=== PATIENT | female | born 1970 | race Caucasian/White ===

== ENCOUNTER 2025-03-15 04:19 | Emergency (ER) | payer MEDICAID, SELFPAY ==
[2025-03-15] VITALS (9 sets, daily range): BP systolic 96–163; BP diastolic 49–84; PULSE 57–79; RESP 14–20; TEMP 36.7–36.9; O2SAT 96–100; BMI 26.4
--- NOTE | 2025-03-15 04:17 | ECG_ITS ---
APPROVED REPORT Exam: Resting ECG HR:79 bpm ECG Measurements Heart Rate 79 AXES MT 148 P 69 QRSd 88 QRS 72 QT 384 T 18 QTc 419 Conclusion SINUS RHYTHM LOW QRS VOLTAGE IN PRECORDIAL LEADS [QRS DEFLECTION < 1.0 mV IN CHEST LEADS] ST DEVIATION AND MODERATE T-WAVE ABNORMALITY, CONSIDER ANTERIOR ISCHEMIA [-0.1+ mV T-WAVE IN V3/V4] ABNORMAL ECG UNCONFIRMED REPORT Electronically signed by : KELLEN NAIR, 03/17/2025 00:33:55
--- NOTE | 2025-03-15 04:22 | ED_ITS ---
Discharge Plan Disposition Patient Disposition: Home, Self-Care Referrals Follow up/Referrals: Carlos Hardin MD [Staff Physician, General Surgery] - See instructions Raffi Orbien MD [Staff Physician, Cardiology] - See instructions ProviderDawit MD [Primary Care Provider, Medical] - See instructions Lisa Chaudhary MD [Physician, Pulmonology] - See instructions Activity Restrictions/Add. Instructions Additional Instructions/Restrictions: As discussed there is diagnostic uncertainty but no evidence of any emergent medical condition identified today. The only abnormality that we found were gallstones on your bedside ultrasound. It is likely that your symptoms today were secondary to biliary colic from your gallstones and you may follow-up with our general surgeon Dr. Hardin. Also as you had some chest discomfort cannot rule out that there is some cardiac involvement but there was no evidence of a heart attack or any cardiopulmonary emergency but you may follow-up with our officer captain Dr. Obrien as well. Lastly given the fact that you are a chronic smoker and you have had some chronic respiratory issues per your request have given you a referral to our log haul chain feeder Dr. Chaudhary. Clinical Impressions Clinical Impression: Back pain, Chest pain, Abdominal pain, Gall bladder stones Instructions Patient Instructions: DI for Acute Abdominal Pain Print Language Print Language: Syriac Discharge ED Provider: Román Leung General Adult HPI <Román Leung MD - Last Filed: 03/15/25 07:12> General Chief complaint: Abdominal Pain Stated complaint: chest pain Time Seen by Provider: 03/15/25 04:22 History of Present Illness HPI narrative: 55-year-old female with reported history of chronic Lyme disease presents for back pain chest pain shortness of breath. She reports symptoms started tonight and have been worsening. She reports a sharp stabbing pain between her shoulder blades. She reports significant shortness of breath. She is chronically short of breath with much worse now than normal. She reports that she has a history of back issues due to breaking her back as a child. She is very anxious and hyperventilating. Related Data Allergies Allergy/AdvReac Type Severity Reaction Status Date / Time prednisone Allergy Hives Verified 03/15/25 04:44 PFSH <Román Leung MD - Last Filed: 03/15/25 07:12> [facility] Disclaimer: The information contained in this section may have been updated after the patient was seen, as this information can be updated by other users. Social History (Updated 03/15/25 @ 07:12 by Román Leung MD) Smoking Status: Current every day smoker alcohol intake: never current occupational status: other Travel in the last 8 weeks?: None <Román Leung MD - Last Filed: 03/15/25 07:12> ROS Obtained: Yes All systems reviewed & no additional complaints except as documented Physical Exam <Román Leung MD - Last Filed: 03/15/25 07:12> General General appearance: anxious and in distress Head Head exam: atraumatic and normocephalic Eye Eye exam: Present normal appearance, PERRL and EOMI ENT ENT exam: Present normal oropharynx and normal external ear exam Neck Neck exam: Present normal inspection and full ROM Chest Chest inspection: Present normal inspection and symmetric chest wall rise; Absent tenderness Respiratory Respiratory exam: Present normal lung sounds bilaterally and other (Hyperventilating) Cardiovascular Cardiovascular exam: Present regular rate and normal rhythm Abdominal Exam Abdominal exam: Present soft; Absent distention, tenderness or guarding Extremities Exam Extremities exam: Present normal inspection; Absent edema or joint swelling Back Exam Back exam: Present normal inspection and tenderness Neurological Exam Neurological exam: Present alert and oriented X3; Absent motor sensory deficit Psychiatric Psychiatric exam: Present anxious Skin Skin exam: Present warm, dry and normal color Lymphatic Lymphatic Findings: no adenopathy Medical Decision Making <Román Leung MD - Last Filed: 03/15/25 07:12> Medical Records Medical records reviewed: Yes I reviewed the patient's medical records. Screening: Per USPSTF and CDC recommendations, given the prevalence of disease in our region, it is our hospital?s policy to screen for HIV and viral Hepatitis for all patients aged 18 and over and those with ongoing risk factors. Nilo Inquiry Pt receiving controlled substance: No Nilo was queried for this patient: No Vital Signs: 03/15/25 04:39 03/15/25 04:52 03/15/25 04:52 Temperature 98.0 F Temperature Source Oral Pulse Rate 79 63 Pulse Rate [Left Radial] 77 Respiratory Rate 19 20 Blood Pressure 143/81 H Blood Pressure [Right Arm] 138/70 Blood Pressure Mean [Right Arm] 92 Blood Pressure Source [Right Arm] Automatic Cuff Blood Pressure Position [Right Arm] Sitting 02 Sat by Pulse Oximetry 100 100 Oxygen Delivery Method Room Air 03/15/25 05:30 03/15/25 06:01 03/15/25 06:35 Temperature Temperature Source Pulse Rate 63 61 Pulse Rate [Left Radial] Respiratory Rate 17 17 14 Blood Pressure 163/84 H 98/49 L 127/73 Blood Pressure [Right Arm] Blood Pressure Mean [Right Arm] Blood Pressure Source [Right Arm] Blood Pressure Position [Right Arm] 02 Sat by Pulse Oximetry 99 98 Oxygen Delivery Method 03/15/25 07:30 03/15/25 08:00 Temperature Temperature Source Pulse Rate 57 L 59 L Pulse Rate [Left Radial] Respiratory Rate 16 16 Blood Pressure 98/60 L 109/69 L Blood Pressure [Right Arm] Blood Pressure Mean [Right Arm] Blood Pressure Source [Right Arm] Blood Pressure Position [Right Arm] 02 Sat by Pulse Oximetry 96 97 Oxygen Delivery Method Lab Data Lab results reviewed: Yes I reviewed the patient's lab results. Lab Results 03/15/25 04:20: WBC 8.7, RBC 4.53, Hgb 13.7, Hct 39.3, MCV 86.8, MCH 30.2, MCHC 34.9, RDW 12.4, Plt Count 227, MPV 11.4 H, Neut % (Auto) 45.5, Lymph % (Auto) 44.3, Sutton % (Auto) 5.4, Eos % (Auto) 3.9, Baso % (Auto) 0.7, Neut # (Auto) 4.0, Lymph # (Auto) 3.9, Sutton # (Auto) 0.5, Eos # (Auto) 0.3, Baso # (Auto) 0.1, D- Dimer 0.62 H, Sodium 138, Potassium 4.0, Chloride 113 H, Carbon Dioxide 16 L, Anion Gap 13.0, BUN 14, Creatinine 1.00, Estimated GFR 58 L, Est GFR ( Amer) 70, Glucose 100, Calcium 9.3, Magnesium 2.2, Total Bilirubin 0.3, AST 28, ALT 25, Alkaline Phosphatase 75, Troponin I < 0.01, Total Protein 6.7, Albumin 4.2, Globulin 2.5, Albumin/Globulin Ratio 1.7, Lipase 224 03/15/25 06:35: Urine Color Yellow, Urine Appearance Clear, Urine pH 5.5, Ur Specific [place] 1.010, Urine Protein Negative, Urine Glucose (UA) Negative, Urine Ketones Negative, Urine Blood Negative, Urine Nitrate Negative, Urine Bilirubin Negative, Urine Urobilinogen 0.2, Ur Leukocyte Esterase Negative, Urine RBC Occasional, Urine WBC 3-5, Ur Squamous Epith Cells 3-5, Urine Bacteria Trace 03/15/25 07:15: Troponin I < 0.01 03/15/25 04:20 03/15/25 04:20 Orders (Tests/Meds): ED MEDICATIONS Discontinued Medications Generic Name Dose Route Start Last Admin Trade Name Rene PRN Reason Stop Dose Admin Aspirin 324 mg 03/15/25 04:22 03/15/25 04:27 Aspirin 81mg Chewable Tablet PO 03/15/25 04:23 324 mg ONCE ONE Administration Belladonna Alkaloids 60 ml 03/15/25 04:22 03/15/25 04:28 Belladonna Alkaloids 60 Ml Ml PO 03/15/25 04:23 60 ml ONCE ONE Administration Iopamidol 80 ml 03/15/25 05:12 03/15/25 05:13 Iopamidol-370 (76%);100ml Bottle IV 03/15/25 05:13 80 ml ONCE ONE Administration Morphine Sulfate 4 mg 03/15/25 04:48 03/15/25 04:53 Morphine 4mg/Ml Syringe IV 03/15/25 04:49 4 mg ONCE ONE Administration Promethazine HCl 25 mg 03/15/25 04:48 03/15/25 04:54 Promethazine Hcl 25mg/Ml 1ml Vial IV 03/15/25 04:49 25 mg ONCE ONE Administration Sodium Chloride 25 ml 03/15/25 04:48 03/15/25 04:54 Sodium Chloride 0.9% 25ml Bag IV 03/15/25 04:49 25 ml ONCE ONE Administration Sodium Chloride 50 ml 03/15/25 05:12 03/15/25 05:13 0.9 % Sodium Chloride 50 Ml Vial IV 03/15/25 05:13 50 ml ONCE ONE Administration Sodium Chloride 10 ml 03/15/25 05:12 03/15/25 05:13 Sodium Chloride 0.9% 10ml Syr (Rad Only) IV 03/15/25 05:13 10 ml ONCE ONE Administration ORDERS Category Date Time Status CTA Chest [CT angio chest - dissection] Stat Cat Scan 03/15/25 04:49 Completed CXR --portable [XR chest portable] Stat Exams 03/15/25 04:22 Completed POCUS Point of Care (ER Only) Stat Exams 03/15/25 05:43 Completed CBC w/Auto Diff [Complete Blood Count Auto Diff] Stat Lab 03/15/25 04:20 Completed CMP [Comprehensive Metabolic Panel] Stat Lab 03/15/25 04:20 Completed D-Dimer Stat Lab 03/15/25 04:20 Completed Lipase Stat Lab 03/15/25 04:20 Completed Magnesium Stat Lab 03/15/25 04:20 Completed Troponin I Q3H Lab 03/15/25 04:20 Completed Troponin I Q3H Lab 03/15/25 07:15 Completed UA [Urinalysis and Microscopic] Stat Lab 03/15/25 06:35 Completed ECG Data Tracing #1: I reviewed this ECG and interpreted as documented below: Sinus rhythm, rate of 79, T wave inversion in lead V3, base artifact somewhat limits interpretation. ECG initial impression date: 03/15/25 ECG initial impression time: 04:17 HEART Score History (anamnesis): Slightly suspicious ECG: Non-specific disturbance Age: 45-65 years Risk factors: No known risk factors Troponin: </= normal limit HEART Score: 2 Medical Decision Narrative: 55-year-old female with chronic Lyme presents for severe back pain radiating to the chest and shortness of breath. History was obtained via interactive discussion with patient. On arrival, patient is [afebrile, hemodynamically stable, satting appropriately, alert, oriented x4, GCS 15], moving all extremities spontaneously. Full physical exam performed and significant for extremely anxious woman, writhing around in bed, clear lungs bilaterally, no significant abdominal tenderness. Differential includes but is not limited to ACS, PE, acute aortic syndrome, esophageal pathology, panic attack. Patient was given aspirin, GI cocktail, morphine, Phenergan for symptomatic management and correction of underlying abnormalities. Workup initiated including CBC CMP troponin D-dimer chest x-ray EKG. On re-evaluation, patient is more calm, still reporting pain, now primarily in her right upper quadrant and her back. As such, I performed a bedside ultrasound which showed some gallstones but no pericholecystic fluid or gallbladder wall thickening. Laboratory workup independently interpreted by me and significant for positive D-dimer, will follow-up with CTA. Negative initial troponin, urinalysis not concerning for infection or stone.. Imaging independently interpreted by me and significant for clear lungs bilaterally without evidence of PE, no evidence of aortic dissection.. See radiology read for full review of final results. On further reassessment patient reports marked symptomatic improvement. At this time care handed off to oncoming physician pending second troponin. <Michael Okeefe MD - Last Filed: 03/15/25 08:38> Vital Signs: 03/15/25 04:39 03/15/25 04:52 03/15/25 04:52 Temperature 98.0 F Temperature Source Oral Pulse Rate 79 63 Pulse Rate [Left Radial] 77 Respiratory Rate 19 20 Blood Pressure 143/81 H Blood Pressure [Right Arm] 138/70 Blood Pressure Mean [Right Arm] 92 Blood Pressure Source [Right Arm] Automatic Cuff Blood Pressure Position [Right Arm] Sitting 02 Sat by Pulse Oximetry 100 100 Oxygen Delivery Method Room Air 03/15/25 05:30 03/15/25 06:01 03/15/25 06:35 Temperature Temperature Source Pulse Rate 63 61 Pulse Rate [Left Radial] Respiratory Rate 17 17 14 Blood Pressure 163/84 H 98/49 L 127/73 Blood Pressure [Right Arm] Blood Pressure Mean [Right Arm] Blood Pressure Source [Right Arm] Blood Pressure Position [Right Arm] 02 Sat by Pulse Oximetry 99 98 Oxygen Delivery Method 03/15/25 07:30 03/15/25 08:00 Temperature Temperature Source Pulse Rate 57 L 59 L Pulse Rate [Left Radial] Respiratory Rate 16 16 Blood Pressure 98/60 L 109/69 L Blood Pressure [Right Arm] Blood Pressure Mean [Right Arm] Blood Pressure Source [Right Arm] Blood Pressure Position [Right Arm] 02 Sat by Pulse Oximetry 96 97 Oxygen Delivery Method Lab Data Lab Results 03/15/25 04:20: WBC 8.7, RBC 4.53, Hgb 13.7, Hct 39.3, MCV 86.8, MCH 30.2, MCHC 34.9, RDW 12.4, Plt Count 227, MPV 11.4 H, Neut % (Auto) 45.5, Lymph % (Auto) 44.3, [place] % (Auto) 5.4, Eos % (Auto) 3.9, Baso % (Auto) 0.7, Neut # (Auto) 4.0, Lymph # (Auto) 3.9, [place] # (Auto) 0.5, Eos # (Auto) 0.3, Baso # (Auto) 0.1, D- Dimer 0.62 H, Sodium 138, Potassium 4.0, Chloride 113 H, Carbon Dioxide 16 L, Anion Gap 13.0, BUN 14, Creatinine 1.00, Estimated GFR 58 L, Est GFR ( Amer) 70, Glucose 100, Calcium 9.3, Magnesium 2.2, Total Bilirubin 0.3, AST 28, ALT 25, Alkaline Phosphatase 75, Troponin I < 0.01, Total Protein 6.7, Albumin 4.2, Globulin 2.5, Albumin/Globulin Ratio 1.7, Lipase 224 03/15/25 06:35: Urine Color Yellow, Urine Appearance Clear, Urine pH 5.5, Ur Specific [place] 1.010, Urine Protein Negative, Urine Glucose (UA) Negative, Urine Ketones Negative, Urine Blood Negative, Urine Nitrate Negative, Urine Bilirubin Negative, Urine Urobilinogen 0.2, Ur Leukocyte Esterase Negative, Urine RBC Occasional, Urine WBC 3-5, Ur Squamous Epith Cells 3-5, Urine Bacteria Trace 03/15/25 07:15: Troponin I < 0.01 Orders (Tests/Meds): ED MEDICATIONS Discontinued Medications Generic Name Dose Route Start Last Admin Trade Name Freq PRN Reason Stop Dose Admin Aspirin 324 mg 03/15/25 04:22 03/15/25 04:27 Aspirin 81mg Chewable Tablet PO 03/15/25 04:23 324 mg ONCE ONE Administration Belladonna Alkaloids 60 ml 03/15/25 04:22 03/15/25 04:28 Belladonna Alkaloids 60 Ml Ml PO 03/15/25 04:23 60 ml ONCE ONE Administration Iopamidol 80 ml 03/15/25 05:12 03/15/25 05:13 Iopamidol-370 (76%);100ml Bottle IV 03/15/25 05:13 80 ml ONCE ONE Administration Morphine Sulfate 4 mg 03/15/25 04:48 03/15/25 04:53 Morphine 4mg/Ml Syringe IV 03/15/25 04:49 4 mg ONCE ONE Administration Promethazine HCl 25 mg 03/15/25 04:48 03/15/25 04:54 Promethazine Hcl 25mg/Ml 1ml Vial IV 03/15/25 04:49 25 mg ONCE ONE Administration Sodium Chloride 25 ml 03/15/25 04:48 03/15/25 04:54 Sodium Chloride 0.9% 25ml Bag IV 03/15/25 04:49 25 ml ONCE ONE Administration Sodium Chloride 50 ml 03/15/25 05:12 03/15/25 05:13 0.9 % Sodium Chloride 50 Ml Vial IV 03/15/25 05:13 50 ml ONCE ONE Administration Sodium Chloride 10 ml 03/15/25 05:12 03/15/25 05:13 Sodium Chloride 0.9% 10ml Syr (Rad Only) IV 03/15/25 05:13 10 ml ONCE ONE Administration ORDERS Category Date Time Status CTA Chest [CT angio chest - dissection] Stat Cat Scan 03/15/25 04:49 Completed CXR --portable [XR chest portable] Stat Exams 03/15/25 04:22 Completed POCUS Point of Care (ER Only) Stat Exams 03/15/25 05:43 Completed CBC w/Auto Diff [Complete Blood Count Auto Diff] Stat Lab 03/15/25 04:20 Completed CMP [Comprehensive Metabolic Panel] Stat Lab 03/15/25 04:20 Completed D-Dimer Stat Lab 03/15/25 04:20 Completed Lipase Stat Lab 03/15/25 04:20 Completed Magnesium Stat Lab 03/15/25 04:20 Completed Troponin I Q3H Lab 03/15/25 04:20 Completed Troponin I Q3H Lab 03/15/25 07:15 Completed UA [Urinalysis and Microscopic] Stat Lab 03/15/25 06:35 Completed HEART Score HEART Score: 2 Medical Decision Narrative: 55-year-old female with chronic Lyme presents for severe back pain radiating to the chest and shortness of breath. History was obtained via interactive discussion with patient. On arrival, patient is [afebrile, hemodynamically stable, satting appropriately, alert, oriented x4, GCS 15], moving all extremities spontaneously. Full physical exam performed and significant for extremely anxious woman, writhing around in bed, clear lungs bilaterally, no significant abdominal tenderness. Differential includes but is not limited to ACS, PE, acute aortic syndrome, esophageal pathology, panic attack. Patient was given aspirin, GI cocktail, morphine, Phenergan for symptomatic management and correction of underlying abnormalities. Workup initiated including CBC CMP troponin D-dimer chest x-ray EKG. On re-evaluation, patient is more calm, still reporting pain, now primarily in her right upper quadrant and her back. As such, I performed a bedside ultrasound which showed some gallstones but no pericholecystic fluid or gallbladder wall thickening. Laboratory workup independently interpreted by me and significant for positive D-dimer, will follow-up with CTA. Negative initial troponin, urinalysis not concerning for infection or stone.. Imaging independently interpreted by me and significant for clear lungs bilaterally without evidence of PE, no evidence of aortic dissection.. See radiology read for full review of final results. On further reassessment patient reports marked symptomatic improvement. At this time care handed off to oncoming physician pending second troponin. Reassessment this is Dr. Okeefe at 8:36 AM I took over care from Dr. Leung. I reviewed all the workup from Dr. Leung and the second troponin was undetectably low. CT scan was unremarkable troponins were unremarkable EKG was nonischemic his bedside ultrasound I reviewed the images there are evidence of stones and sludge and no evidence of acute cholecystitis. I reassessed the patient she is feeling much better she did states she had some right sided abdominal discomfort but primarily back pain that was radiating through to her back. No evidence of a dissection on CT scan. She is a chronic smoker no evidence of any lung parenchymal abnormalities. She did state that she has had some chronic hoarse voice as well as chronic congestion and has been trying to stop smoking I given her a referral to her log haul chain feeder per her request. Most likely her symptoms are secondary to biliary colic as the only abnormality we found today were some gallstones/sludge. I told her that this may return and we discussed some dietary modifications and I gave her referral to a general surgeon if this returns. Lastly as some of her symptoms were involving her chest and her back cannot rule out cardiac involvement there is no definitive evidence of acute coronary syndrome or myocardial injury etc. However I have given her also a referral to cardiology. There is some diagnostic uncertainty with what did cause her symptoms today but overall this is not consistent with a medical or surgical emergency and patient was discharged in stable condition with outpatient follow-up discussed. Procedures <Román Leung MD - Last Filed: 03/15/25 07:12> Risk/Benefits of Procedure(s) Were Explained: Yes Limited Ultrasound Indication:: Limited RUQ ultrasound Indication: Abdominal pain Identified structures: -Gallbladder -Gallbladder wall -Liver Findings: Sonographic Watkins sign: Absent Gallstones: Present Sludge: Present Pericholecystic fluid: Absent Maximal GB wall thickness (mm): [normal is </= 3mm] 1.9 mm Common bile duct width (mm): [normal is </= 6mm] Unable to visualize Gallbladder width (cm): [normal is < 4cm] Normal Gallbladder length (cm): [normal is < 10cm] Upper limit of normal Impression: Cholelithiasis without evidence of cholecystitis Images were saved to permanent archive The study was technically adequate CPT 20020-50 This study was performed by me, and I personally interpreted all images/videos. Critical Care <Román Leung MD - Last Filed: 03/15/25 07:12> Critical Care Time Critical Care Time: No <Michael Okeefe MD - Last Filed: 03/15/25 08:38> Critical Care Time Critical Care Time: Yes Attestation: On 03/15/25, the high probability of a clinically significant, sudden or life threatening deterioration of the following system(s) required my full and direct attention, intervention and personal management. The time I documented below is in addition to time spent performing reported procedures but includes the following listed in this critical care notation. Total Time Total Critical Care Time: 35
--- NOTE | 2025-03-15 04:22 | XR_ITS ---
PROCEDURE INFORMATION: Exam: XR Chest Exam date and time: 03/15/2025 4:43 AM Age: 55 years old Clinical indication: Pain; Chest pressure; Additional info: Cp TECHNIQUE: Imaging protocol: Radiologic exam of the chest. Views: 1 view. COMPARISON: No relevant prior studies available. FINDINGS: Lungs: Unremarkable. No consolidation. Pleural spaces: Unremarkable. No pleural effusion. No pneumothorax. Heart/Mediastinum: Unremarkable. No cardiomegaly. Bones/joints: Unremarkable. IMPRESSION: No acute findings.
[2025-03-15 04:27] LABS: Hematocrit 39.3 % (37.0-47.0); Hemoglobin 13.7 g/dL (12.2-16.2); Immature Granulocytes % 0.2 %; Mean Corpuscular HGB Conc 34.9 g/dL (31.8-35.4); Mean Corpuscular Hemoglobin 30.2 pg (27.0-31.2); Mean Corpuscular Volume 86.8 fl (81-99); Nucleated Red Blood Cells % 0 %; Platelet Count 227 K/mm3 (142-424); Red Blood Count 4.53 M/mm3 (4.20-5.40); Red Cell Distribution Width-SD 39.5 fL; White Blood Count 8.7 K/mm3 (4.8-10.8)
[2025-03-15] MEDS: ASPIRIN 81MG CHEWABLE TABLET 324 MG PO (04:27)
[2025-03-15] MEDS: BELLADONNA ALKALOIDS 60 ML ML PO (04:28)
[2025-03-15 04:37] LABS: Alanine Aminotransferase 25 U/L (12-78); Albumin Level 4.2 g/dl (3.5-5.0); Albumin/Globulin Ratio 1.7 (1.1-1.8); Alkaline Phosphatase 75 U/L (38-126); Anion Gap 13.0 mEq/L (5-15); Aspartate Amino Transferase 28 U/L (14-36); Bilirubin,Total 0.3 mg/dl (0.2-1.3); Blood Urea Nitrogen 14 mg/dl (7-17); Calcium 9.3 mg/dl (8.4-10.2); Carbon Dioxide 16 mmol/L (22.0-30.0); Chloride 113 mmol/L (98-107); Creatinine,Serum 1.00 mg/dl (0.52-1.04); Estimated Glomerular Filt Rate 58 ml/min (>60); GFR (African American) 70 ML/MIN (>60); Globulin 2.5 g/dL (1.3-3.2); Glucose 100 mg/dl (74-100); Magnesium 2.2 mg/dl (1.6-2.3); Potassium 4.0 mmoL/L (3.5-5.1); Sodium 138 mmol/L (136-145); Total Protein,Serum 6.7 g/dl (6.3-8.2)
[2025-03-15 04:41] LABS: D-Dimer 0.62 ug/mL (0.0-0.5)
--- NOTE | 2025-03-15 04:49 | CT_ITS ---
PROCEDURE INFORMATION: Exam: CTA Chest With Contrast Exam date and time: 03/15/2025 5:07 AM Age: 55 years old Clinical indication: Chest pressure and other: Back pain; Additional info: Severe back/chest pain, positive dimer TECHNIQUE: Imaging protocol: Computed tomographic angiography of the chest with contrast. Exam focused on the arteries. 3D rendering (Not supervised by radiologist): MIP and/or 3D reconstructed images were created by the technologist. Radiation optimization: All CT scans at this facility use at least one of these dose optimization techniques: automated exposure control; mA and/or kV adjustment per patient size (includes targeted exams where dose is matched to clinical indication); or iterative reconstruction. Contrast material: ISOVUE; Contrast volume: 80 ml; Contrast route: INTRAVENOUS (IV); COMPARISON: CR XR CHEST PORTABLE 03/15/2025 4:43 AM FINDINGS: Pulmonary arteries: Normal. No pulmonary emboli. Aorta: Unremarkable. No aortic aneurysm. No aortic dissection. Lungs: Unremarkable. No consolidation. No masses. Pleural spaces: Unremarkable. No pneumothorax. No pleural effusion. Heart: No coronary calcification is noted. . No cardiomegaly. No pericardial effusion. Lymph nodes: Unremarkable. No enlarged lymph nodes. Bones/joints: Unremarkable. No acute fracture. Soft tissues: Unremarkable. IMPRESSION: No evidence of pulmonary embolus or other acute process.
[2025-03-15 04:52] LABS: Troponin I < 0.01 ng/ml (0.00-0.034)
[2025-03-15] MEDS: MORPHINE 4MG/ML SYRINGE 4 MG IV (04:53)
[2025-03-15] MEDS: SODIUM CHLORIDE 0.9% 25ML BAG 25 ML IV (04:54)
[2025-03-15] MEDS: PROMETHAZINE HCL 25MG/ML 1ML VIAL 25 MG IV (04:54)
--- NOTE | 2025-03-15 04:54 | PC.NURSE ---
pt thrashing around in bed, rapid speech, intermittently laughing, and jittery. States she can not sit still because of the pain. Pt reports she wants to be sedated because the medicine she was given was not helping. 143/81 HR55 O2 99%, RR15.
[2025-03-15 04:59] LABS: Lipase 224 U/L (23-300)
[2025-03-15] MEDS: SODIUM CHLORIDE 0.9% 10ML SYR (RAD ONLY) 10 ML IV (05:13)
[2025-03-15] MEDS: 0.9 % SODIUM CHLORIDE 50 ML VIAL IV (05:13)
[2025-03-15] MEDS: IOPAMIDOL-370 (76%);100ML BOTTLE 80 ML IV (05:13)
[2025-03-15 06:38] LABS: Microscopic, Urine URINE MICROSCOPIC (MICROSCOPIC)
[2025-03-15 06:42] LABS: Bilirubin,Urine Negative (Negative); Color,Urine YELLOW (Yellow); Glucose,Urine (UA) Negative (Negative); Ketones,Urine Negative (Negative); Leukocyte Esterase,Urine Negative (Negative); PH,Urine 5.5 (5.0-8.5); Protein,Urine Negative (Negative); Specific Gravity, Urine 1.010 (1.005-1.030); Urobilinogen,Urine 0.2 EU/dl (0.2)
[2025-03-15 07:03] LABS: Bacteria,Urine Trace /lpf; RBC,Urine Occasional #/hpf (0-3)
[2025-03-15 07:55] LABS: Troponin I < 0.01 ng/ml (0.00-0.034)
== END 2025-03-15 08:56 | disposition home or self-care (01) ==
PROVIDERS: Emergency Provider Emergency Medicine
DX: R07.9 Chest pain, unspecified (principal); R10.11 Right upper quadrant pain; K80.20 Calculus of gallbladder without cholecystitis without obstruction; M54.6 Pain in thoracic spine; F17.210 Nicotine dependence, cigarettes, uncomplicated
CPT/HCPCS: 71045; 71275; 80053; 81001; 83690; 83735; 84484; 85025; 85378; 93005; 96374; 96375; 99285; J2270; J2550; Q9967

== ENCOUNTER 2025-03-25 13:02 | Emergency (ER) | payer MEDICAID, SELFPAY ==
--- NOTE | 2025-03-25 13:21 | XR_ITS ---
PROCEDURE INFORMATION: Exam: XR Chest Exam date and time: 03/25/2025 1:27 PM Age: 55 years old Clinical indication: Pain; Shortness of breath; Other: Cp; Additional info: Chest pain, shortness of breath TECHNIQUE: Imaging protocol: Radiologic exam of the chest. Views: 2 views. COMPARISON: CT ANGIO CHEST 03/15/2025 5:07 AM FINDINGS: Lungs: Unremarkable. No consolidation. Pleural spaces: Unremarkable. No pleural effusion. No pneumothorax. Heart/Mediastinum: Unremarkable. No cardiomegaly. Bones/joints: Unremarkable. IMPRESSION: Normal chest x-rays.
--- NOTE | 2025-03-25 13:22 | HMH.EDGENADL ---
Discharge Plan Disposition Patient Disposition: Eloped Chief Complaint: Chest Pain Referrals Follow up/Referrals: Raffi Obrien MD [Staff Physician, Cardiology] - See instructions Provider,MD Dawit [Primary Care Provider, Medical] - See instructions Activity Restrictions/Add. Instructions Additional Instructions/Restrictions: I encourage you to come back Thursday to get set up with a Holter monitor. I am also referring you to the quality assurance supervisor final, Dr. Obrien, and encourage you to follow-up with him. If you develop any new or worsening symptoms, or if you become concerned for your health for any reason, return to the emergency department for evaluation. 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 She states that she was diagnosed with Lyme 3 months ago and completed a 21-day course of 100 mg twice daily doxycycline. She states that for last several weeks, she has had episodes that occur every 15 minutes where she will get chest pains, shortness of breath and lightheadedness and has continued to have brain fog. She is worried that she has a blockage in her heart and was told by her Lyme specialist that you can develop blocks in your heart. She states that she is not having any symptoms right now, but in 15 minutes she will likely have symptoms. She states that she is very anxious that she is going to in her sleep. She was seen here over a week ago and was diagnosed with gallstones. She states that she currently does not have a primary care physician due to insurance issues that should be resolving shortly. Patient reports that she uses delta 9 at night and smokes 2 cigarettes daily. Related Data Allergies Allergy/AdvReac Type Severity Reaction Status Date / Time prednisone Allergy Hives Verified 03/15/25 04:44 [facility] Disclaimer: The information contained in this section may have been updated after the patient was seen, as this information can be updated by other users. Social History (Updated 03/15/25 @ 07:12 by Román Leung MD) Smoking Status: Never smoker alcohol intake: never current occupational status: other Travel in the last 8 weeks?: None Have you lived/traveled outside US in past 30 days?: No Contact w/someone who lives/traveled outside US past 30 days?: No Exposure to someone with infectious disease in past 14 days?: No Do you have a fever (greater than 100.4 F or 38 C)?: No Have you tested positive for COVID-19?: No Exposed to someone with COVID-19 in past 14 days?: No Do you have a sore throat?: No Do you have a cough?: No Do you have any weakness?: No Do you have any diarrhea?: No Are you experiencing any unusual bleeding?: No Do you have any muscle aches/pain?: No Do you have any abdominal pain?: No Are you experiencing loss of taste or smell?: No ROS Obtained: Yes Systems reviewed as appropriate & no additional complaints except as documented Physical Exam General General appearance: alert, in no apparent distress and anxious Head Head exam: atraumatic Eye Eye exam: Present normal appearance ENT ENT exam: Present normal external ear exam Neck Neck exam: Present full ROM Chest Chest inspection: Present symmetric chest wall rise Respiratory Respiratory exam: Present normal lung sounds bilaterally; Absent respiratory distress, wheezes or stridor Cardiovascular Cardiovascular exam: Present regular rate and normal rhythm Abdominal Exam Abdominal exam: Present soft; Absent distention, tenderness or guarding Extremities Exam Extremities exam: Present normal inspection Back Exam Back exam: Present normal inspection Neurological Exam Neurological exam: Present alert and oriented X3 Psychiatric Psychiatric exam: Present normal affect Skin Skin exam: Present warm and dry Medical Decision Making Medical Records Screening: Per USPSTF and CDC recommendations, given the prevalence of disease in our region, it is our hospital?s policy to screen for HIV and viral Hepatitis for all patients aged 18 and over and those with ongoing risk factors. Nilo Inquiry Pt receiving controlled substance: No Vital Signs: 03/25/25 13:33 03/25/25 13:45 03/25/25 15:03 Temperature 98.1 F Temperature Source Oral Pulse Rate 56 L 65 Pulse Rate [Right] 66 Respiratory Rate 16 Blood Pressure 142/95 H 112/63 Blood Pressure [Right Arm] 132/77 Blood Pressure Mean [Right Arm] 95 02 Sat by Pulse Oximetry 99 99 99 Oxygen Delivery Method Room Air Room Air 03/25/25 16:10 03/25/25 16:35 Temperature 0 F L Temperature Source Pulse Rate 80 0 L Pulse Rate [Right] Respiratory Rate 0 L Blood Pressure 0/0 L Blood Pressure [Right Arm] Blood Pressure Mean [Right Arm] 02 Sat by Pulse Oximetry Oxygen Delivery Method Lab Data Lab Results 03/25/25 14:33: WBC 7.2, RBC 5.20, Hgb 15.3, Hct 45.0, MCV 86.5, MCH 29.4, MCHC 34.0, RDW 12.2, Plt Count 237, MPV 11.5 H, Neut % (Auto) 56.3, Lymph % (Auto) 35.5, [place] % (Auto) 5.4, Eos % (Auto) 1.9, Baso % (Auto) 0.6, Neut # (Auto) 4.1, Lymph # (Auto) 2.6, [place] # (Auto) 0.4, Eos # (Auto) 0.1, Baso # (Auto) 0.0, D-Dimer 0.65 H, Sodium 140, Potassium 3.9, Chloride 108 H, Carbon Dioxide 21 L, Anion Gap 14.9, BUN 11, Creatinine 0.90, Estimated Creat Clear 78, Estimated GFR 65, Est GFR ( Amer) 79, Glucose 93, Calcium 9.4, Total Bilirubin 1.0, AST 31, ALT 27, Alkaline Phosphatase 82, Troponin I < 0.01, C-Reactive Protein 2.9, NT-Pro-B Natriuret Pep 46.9, Total Protein 8.3 H, Albumin 4.9, Globulin 3.4 H, Albumin/Globulin Ratio 1.4, Lipase 117, TSH 2.37, Free T4 1.25 03/25/25 14:33 03/25/25 14:33 Orders (Tests/Meds): ED MEDICATIONS Discontinued Medications Generic Name Dose Route Start Last Admin Trade Name Freq PRN Reason Stop Dose Admin Lorazepam 1 mg 03/25/25 13:21 03/25/25 13:59 Lorazepam 1mg Tablet PO 03/25/25 13:22 1 mg ONCE ONE Administration ORDERS Category Date Time Status CXR 2 view (NOT portable) [XR chest 2V] Stat Exams 03/25/25 13:21 Completed BNP [NT Pro Brain Natriuretic Pep.] Stat Lab 03/25/25 14:33 Completed CBC w/Auto Diff [Complete Blood Count Auto Diff] Stat Lab 03/25/25 14:33 Completed CMP [Comprehensive Metabolic Panel] Stat Lab 03/25/25 14:33 Completed CRP [C-Reactive Protein] Stat Lab 03/25/25 14:33 Completed D-Dimer Stat Lab 03/25/25 14:33 Completed Free T4 (Free Thyroxine) Stat Lab 03/25/25 14:33 Completed Lipase Stat Lab 03/25/25 14:33 Completed TSH [Thyroid Stimulating Hormone] Stat Lab 03/25/25 14:33 Completed Troponin I Stat Lab 03/25/25 14:33 Completed ECG Data Tracing #1: I reviewed this ECG and interpreted as documented below: Sinus bradycardia with ventricular rate of [address] elevation or depression. No AV blockade with [place] interval normal at 140. 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 She states that she was diagnosed with Lyme 3 months ago and completed a 21-day course of 100 mg twice daily doxycycline. She states that for last several weeks, she has had episodes that occur every 15 minutes where she will get chest pains, shortness of breath and lightheadedness and has continued to have brain fog. She is worried that she has a blockage in her heart and was told by her Lyme specialist that you can develop blocks in your heart. She states that she is not having any symptoms right now, but in 15 minutes she will likely have symptoms. She states that she is very anxious that she is going to in her sleep. She was seen here over a week ago and was diagnosed with gallstones. She states that she currently does not have a primary care physician due to insurance issues that should be resolving shortly. Patient reports that she uses delta 9 at night and smokes 2 cigarettes daily. On arrival, patient is normotensive, heart rate within normal limits, breathing comfortably on room air with oxygen saturation 99% SpO2. Afebrile. Physical exam, as stated above, reveals an anxious. Female in no respiratory distress. GCS 15. No murmurs, rubs, wheezing, rales or rhonchi. Abdomen is soft, nontender. Differential diagnosis includes, but is not limited to: ACS, pericarditis, myocarditis, AV jennifer blockade, cardiac arrhythmia, pneumonia, pleurisy, costochondritis, hyperthyroidism, among others. The most morbid conditions were considered and workup was based on these. Workup in the emergency department included: Chest x-ray, EKG, troponin, BNP, CRP, D-dimer, lipase, TSH/free T4, CBC with differential, CMP. Patient was administered 1 mg of oral Ativan. EKG without AV jennifer blockade or ST elevation or depression. See interpretation above Chest x-ray interpreted by me personally. No focal consolidation, no pneumothorax, no widened mediastinum, no enlargement of the cardiac silhouette. Unremarkable chest x-ray. See radiology report for details. Workup shows no leukocytosis, no anemia, platelets are normal, D-dimer is 0.65 but negative based on years criteria and patient had a CT PE performed on 03/15 with D-dimer at similar levels that was negative. CMP grossly unremarkable and nonactionable. Initial troponin less than 0.01. Lipase normal at 117. Thyroid studies within normal limits. On reassessment, patient was very upset with her unremarkable workup today. I did explain to patient that there is no evidence of emergent pathology on her workup today and that the best course of action is to have her follow-up with a quality assurance supervisor final. I did wish to place the patient in a Holter monitor, which she says she has had 16 of it in the past. She also reiterated that no quality assurance supervisor final will see her because of her Lyme carditis. There is no Holter monitor currently available, however they are restocking this and will likely be available Thursday. I was unable to explain this to the patient before she left the emergency department with her IV still in place. Charge nurse called patient and patient stated that she will remove the IV herself, as she has done many times before. Critical Care Critical Care Time Critical Care Time: No
--- NOTE | 2025-03-25 13:23 | ECG_ITS ---
APPROVED REPORT Exam: Resting ECG HR:58 bpm ECG Measurements Heart Rate 58 AXES IL 140 P 56 QRSd 94 QRS 54 QT 412 T 39 QTc 409 Conclusion SINUS BRADYCARDIA LOW QRS VOLTAGE IN PRECORDIAL LEADS [QRS DEFLECTION < 1.0 mV IN CHEST LEADS] NONSPECIFIC ST & T-WAVE ABNORMALITY BORDERLINE ECG UNCONFIRMED REPORT Sinus bradycardia. No ST elevations or depressions. Electronically signed by : MARIO BOUDREAUX, 03/25/2025 17:43:39
[2025-03-25 13:33] VITALS: BP 132/77; PULSE 66; RESP 16; TEMP 36.7; O2SAT 99; BMI 26.6
[2025-03-25 13:45] VITALS: BP 142/95; PULSE 56; O2SAT 99
--- NOTE | 2025-03-25 14:01 | PC.NURSE ---
pt does not want an IV attempted @ this time. She is pacing on the unit
[2025-03-25 14:48] LABS: Hematocrit 45.0 % (37.0-47.0); Hemoglobin 15.3 g/dL (12.2-16.2); Immature Granulocytes % 0.3 %; Mean Corpuscular HGB Conc 34.0 g/dL (31.8-35.4); Mean Corpuscular Hemoglobin 29.4 pg (27.0-31.2); Mean Corpuscular Volume 86.5 fl (81-99); Nucleated Red Blood Cells % 0 %; Platelet Count 237 K/mm3 (142-424); Red Blood Count 5.20 M/mm3 (4.20-5.40); Red Cell Distribution Width-SD 38.8 fL; White Blood Count 7.2 K/mm3 (4.8-10.8)
[2025-03-25 14:54] LABS: Lipase 117 U/L (23-300)
[2025-03-25 14:55] LABS: Alanine Aminotransferase 27 U/L (12-78); Albumin Level 4.9 g/dl (3.5-5.0); Albumin/Globulin Ratio 1.4 (1.1-1.8); Alkaline Phosphatase 82 U/L (38-126); Anion Gap 14.9 mEq/L (5-15); Aspartate Amino Transferase 31 U/L (14-36); Bilirubin,Total 1.0 mg/dl (0.2-1.3); Blood Urea Nitrogen 11 mg/dl (7-17); Calcium 9.4 mg/dl (8.4-10.2); Carbon Dioxide 21 mmol/L (22.0-30.0); Chloride 108 mmol/L (98-107); Creatinine Clearance Estimated 78 mL/min (50-200); Creatinine,Serum 0.90 mg/dl (0.52-1.04); Estimated Glomerular Filt Rate 65 ml/min (>60); GFR (African American) 79 ML/MIN (>60); Globulin 3.4 g/dL (1.3-3.2); Glucose 93 mg/dl (74-100); Potassium 3.9 mmoL/L (3.5-5.1); Sodium 140 mmol/L (136-145); Total Protein,Serum 8.3 g/dl (6.3-8.2)
[2025-03-25 14:59] LABS: D-Dimer 0.65 ug/mL (0.0-0.5)
[2025-03-25 15:00] LABS: C-Reactive Protein 2.9 mg/L (0-4)
[2025-03-25 15:03] VITALS: BP 112/63; PULSE 65; O2SAT 99
[2025-03-25 15:09] LABS: NT Pro Brain Natriuretic Pep. 46.9 pg/mL (0-125); Troponin I < 0.01 ng/ml (0.00-0.034)
[2025-03-25 15:25] LABS: Free T4 (Free Thyroxine) 1.25 ng/dl (0.78-2.19)
[2025-03-25 15:28] LABS: Thyroid Stimulating Hormone 2.37 uIU/mL (0.465-4.68)
--- NOTE | 2025-03-25 16:00 | PC.NURSE ---
PT NOTED TO BE ACTING ERRATIC. PACING THE UNIT AND WANDERING INTO OTHER PTS ROOMS WHILE STAFF MEMBERS ARE CARING FOR THEM . WENT IN TO SEE PT.
--- NOTE | 2025-03-25 16:05 | PC.NURSE ---
pt is standing middle of ER saying no one has updated her and its been 3 hours and she will just go home and since we aren't doing anything, ER charge nurse apologized and stated that all her test results are back and negative and we are just keeping her for repeat troponin time. pt states well that would have been nice to know . ER Md states he will come talk to her in a few minutes
[2025-03-25 16:10] VITALS: PULSE 80
[2025-03-25 16:35] VITALS: BP 0/0; PULSE 0; RESP 0; TEMP -17.7; TEMP 0; O2SAT 0
--- NOTE | 2025-03-25 16:36 | PC.NURSE ---
pt walked out of ER after ER Md talked with her about plan of care (disposition), pt did not sign any papers and left with IV in her arm, ER charge nurse called patient and patient stated she had left and RN advised she needed to return where we could remove the IV. pt states she has already removed it as she has removed several in the past. pt states we did nothing for her and she is dying even though our tests said she is fine. charge nurse apologized that she felt that way and that we can only do what the ER md orders and that we are here 23/02 if she wishes to be seen again
--- NOTE | 2025-03-25 16:38 | PC.NURSE ---
called house sup and notified of patient eloping
== END 2025-03-25 16:37 | disposition left against medical advice (07) ==
PROVIDERS: Emergency Provider Student in an Organized Health Care Education/Training Program
DX: R07.89 Other chest pain (principal); R55 Syncope and collapse; R06.02 Shortness of breath
CPT/HCPCS: 71046; 80053; 83690; 83880; 84439; 84443; 84484; 85025; 85378; 86140; 93005; 99284; 99285

== ENCOUNTER 2025-04-01 09:05 | Emergency (ER) | payer MEDICAID, SELFPAY ==
--- OUTSIDE RECORDS SUMMARY | 2025-03-28 14:40 | XMS_ITS | Encounter Summary ---
Author Organization Healthcare Address [address] [place] [address] Care Team Providers Care [facility] Winder Name Role Phone Olivia Valle APRN Primary Care Provider [phone] Reason for Referral * Consultation (Urgent) - Authorized Specialty Diagnoses / Procedures Referred By Contac t Referred To Contact Neurology Diagnoses Neurocognitive disorder Olivia Valle APRN [address] [place] [address] Phone: tel: fax: [facility] [address] [place] [address] Phone: tel: fax: Referral ID Status Reason Start Date Expiration Date Visits Requested Visits Authorized [id number] Authorized Specialty Services Required 03/28/2025 09/27/2026 1 1 Scheduling Instructions Hx of lyme disease with neck pain, brain fog, misusing words and word searching and no longer has the ability to multi-task * Consultation (Urgent) - Authorized Specialty Diagnoses / Procedures Referred By Contac t Referred To Contact Cardiology Diagnoses Chest pain, unspecified type Olivia Valle APRN [address] [place] [address] Phone: tel: fax: Referral ID Status Reason Start Date Expiration Date Visits Requested Visits Authorized [id number] Authorized Specialty Services Required 03/28/2025 09/27/2026 1 1 Scheduling Instructions Patient having chest pain at rest, palpitations, burning pain. Has T wave inversions in V3 and V4. Flat T in V2. LDL is 162.on outside labs Appears to hve Lyme by plot titer and a slightly high HCT at 47.6. Smoking and has a 20 pack year history with tobacco * Cardiac Stress Testing (Routine) - Closed Specialty Diagnoses / Procedures Referred By Babatunde cast Referred To Contact Cardiology Diagnoses Chest pain, unspecified type Procedures Adult Patch Monitor - 7 Day Olivia Valle APRN [address] [place] [address] Phone: tel: fax: Referral ID Status Reason Start Date Expiration Date Visits Re quested Visits Authorized [id number] Closed 03/28/2025 09/27/2026 1 1 * Consultation (Urgent) - Authorized Specialty Diagnoses / Procedures Referred By Babatunde cast Referred To Contact Infectious Diseases Diagnoses Chest pain, unspecified type Bruising Neurocognitive disorder Olivia Valle APRN [address] [place] [address] Phone: tel: fax: Referral ID Status Reason Start Date Expiration Date Visits Requested Visits Authorized [id number] Authorized Specialty Services Required 03/28/2025 09/27/2026 1 1 Scheduling Instructions Patient reports she was diagnosed with Lyme January 2025 with 5 IGP Ab positive P45, P41, P28, P66, P58. Having neurocognitive changes and cardiac symptoms. Was treated with doxy, duration unknown. EGFR 59 Reason for Visit * Reason Comments Establish Care Presents today to diony wesley Referral(s) due to lyme disease. Diagnosed 6 years ago. Concerned with Neurological/Psychological symptoms. Was seen at [facility] ED visit over the weekend for chest pain, was also seen there before that and diagnosed with gallstones.Her bp tends to run lower normally as well. Encounter Details Date Type Department Care Team (Late st Contact Info) Description 03/28/2025 2:40 PM EDT Office Visit [facility] [address] [place] [address] Olivia Valle, BUR[employer] MARKER AXLE [address] [place] [address] Chest pain, unspecified type (Primary Dx); Nausea; Bruising; Health maintenance examination; Neurocognitive disorder; Emotional lability Social History Tobacco Use Types Packs/Day Years Used Date Smoking Tobacco: Every Day Cigarettes 0.5 41.7 Started: 1983 Smokeless Tobacco: Never Comments:Smokes 1 to 10 ciga rettes per day Alcohol Use Standard Drinks/Week Comments Not Currently 0 (1 standard drink = 0.6 oz pure alcohol) Alcoholic Drinks/day: Consumes alcohol weekly PHQ-2 Answer Date Recorded Patient Health Questionnaire-2 Score 3 03/28/2025 PHQ-9 Answer Date Recorded Patient Health Questionnaire-9 Score 24 03/28/2025 AUDIT-C Answer Date Recorded Q1: How often do you have a drink containing alcohol? Never 03/28/2025 Q2: How many drinks containi ng alcohol do you have on a typical day when you are drinking? Patient does not drink Q3: How often do you have si x or more drinks on one occasion? Never 03/28/2025 Comments No Sex and Gender Information Value Date Recorded Sex Assigned at Not on file Legal Sex Female 7:41 PM EDT Gender Identity Not on file Sexual Orientation Not on file documented as of this encounter Last Filed Vital Signs Vital Sign Reading Time Taken Comments Blood Pressure 103/70 03/28/2025 2:38 PM EDT Pulse 68 03/28/2025 2:38 PM EDT Temperature 36.7 C (98 F) 03/28/2025 2:38 PM EDT Respiratory Rate 18 03/28/2025 2:38 PM EDT Oxygen Saturation 98% 03/28/2025 2:38 PM EDT Inhaled Oxygen Concentration - - Weight 65.8 kg (145 lb 1 oz) 03/28/2025 2:38 PM EDT Height 161.3 cm (5' 3.5 ) 03/28/2025 2:38 PM EDT Body Mass Index 25.29 03/28/2025 2:38 PM EDT documented in this encounter Functional Status * AUDIT-C Score Answer Date of Assessment Author 0 03/28/2025 2:39 PM EDT Fortino Enrique * Question Answer Date of Assessment Author Q1: How often do you have a drink containing alcohol? Never 03/28/2025 2:39 PM EDIndy Stanley Q2: How many drinks containing alcohol do you have on a typical day when you are drinking? Patient does not drink 03/28/2025 2:39 PM EDT Indy Enrique Q3: How often do you have six or more drinks on one occasion? Never 03/28/2025 2:39 PM EDIndy Stanley * Over the past 2 weeks, how often have you been bothered by any of the following problems? Question Answer Date of Assessment Author Little interest or pleasure in doing things Not at all 03/28/2025 2:55 PM EDT Indy Enrique Feeling down, depressed, or hopeless Nearly every day 03/28/2025 2:55 PM EDIndy [place] Patient Health Questionnaire -2 Score 3 03/28/2025 2:55 PM EDIndy Stanley * Question Answer Date of Assessment Author Trouble falling or staying asleep, or sleeping too much Nearly every day 03/28/2025 2:55 PM EDT Indy Enrique Feeling tired or having eunice le energy Nearly every day 03/28/2025 2:55 PM EDT Indy Enrique Poor appetite or overeating Nearly every day 2:55 PM EDT Indy Enrique Feeling bad about yourself - or that you are a failure or have let yourself or your family down Nearly every day 03/28/2025 2:55 PM EDIndy [place] Trouble concentrating on things, such as reading the newspaper or watching television Nearly every day 03/28/2025 2:55 PM EDIndy [place] Moving or speaking so slowly that other people could have noticed? Or the opposite - being so fidgety or restless that you have been moving around a lot more than usual. Nearly every day 03/28/2025 2:55 PM EDT Indy Enrique Thoughts that you would be better off or hurting yourself in some way Nearly every day 03/28/2025 2:55 PM EDT Indy Enrique Patient Health Questionnaire -9 Score 24 03/28/2025 2:55 PM EDT Indy Enrique * If you checked off any problems on this questionnaire so far, Question Answer Date of Assessment Author How difficult have these problems made it for you to do your work, take care of things at home, or get along with other people? Extremely difficult 03/28/2025 2:55 PM EDT Indy Enrique * How difficult have these problems made it for you to do your work, take care of things at home, or get along with other people? Answer Date of Assessment Author Extremely difficult 03/28/2025 2:55 PM EDT Idny Enrique documented as of this encounter Miscellaneous Notes * Progress Notes - Olivia Valle APRN - 03/28/2025 2:40 PM EDTAssociated Order(s): ECG [Non-[facility]] (Now - Performed and Interpreted in your clinic) Pre-Procedure Diagnose(s): Chest pain, unspecified type Post-Procedure Diagnose(s): Chest pain, unspecified type Images from the original note were not included. Subjective Christopher Higgins HPI Ms. Higgins presents as a new patient today. She complains of anxiety, neurocognitive changes (word searching). Chest pain, nausea and vomiting. Reports she is able to calm with ativan and THC products only but frequent spiraling out of control, having chest burning at rest, unresponsive to antaci ds. See ROS. Reports she was previously managed by [facility] in [place], [place] and was told she had Lyme by [facility] Line Blot interpretation. 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 Reports having a known embedded tick a year ago on her right upper leg. She had several in her hair/head, one on left shoulder and one on her chest and has small red areas in some of those places. She has several other red areas that were ticks and her breasts both have a pink confluent rash excluding the areola. Patient reports a family member is a psychologist and has been working with her and does not feel she has a mental disease or syndrome. but is in need of a medical diagnosis and is spiraling out of fear of the unknown. Reports she moved to [place] from [place] six years ago. Lives in [facility] in [place]. Patient reports that to date her symptoms have been dismissed as menopausal. Past Medical History[1] Family History[2] Surgical History[3] Social History Socioeconomic History Marital status: Spouse name: Not on file Number of children: Not on file Years of education: Not on file Highest education level: Not on file Occupational History Not on file Tobacco Use Smoking status: Every Day Current packs/day: 0.50 Average packs/day: 0.5 packs/day for 41.6 years (20.8 ttl pk-yrs) Types: Cigarettes Start date: 1983 Smokeless tobacco: Never Tobacco comments: Smokes 1 to 10 cigarettes per day Vaping Use Vaping status: Never Used Substance and Sexual Activity Alcohol use: Not Currently Comment: Alcoholic Drinks/day: Consumes alcohol weekly Drug use: No Comment: Drug use: No illicit drug use Sexual activity: Not on file Other Topics Concern Not on file Social History Narrative Marital Status:Single Social Drivers of Health Financial Resource Strain: Not on file Food Insecurity: Not on file Transportation Needs: Not on file Physical Activity: Not on file Stress: Not on file Social Connections: Not on file Intimate Partner Violence: Not on file Housing Stability: Not on file Medications Ordered Prior to Encounter[4] Allergies[5] Health Maintenance Due Topic Date Due [facility]-HIV Screening Never done [facility]-Hepatitis C Screening Never done [facility]- SDOH Screenings Never done [facility]-DTaP,Tdap,and Td Vaccines (1 - Tdap) Never done [facility]-Hepatitis B Vaccines (1 of 3 - 19+ 3-dose series) Never done [facility]-Pneumococcal Vaccine: 50+ Years (1 of 2 - PCV) Never done [facility]-Colorectal Cancer Screening Never done [facility]-Breast Cancer Screening Never done [facility]-Zoster Vaccines (1 of 2) Never done [facility]-Lung Cancer Screening Never done [id number] Vaccine (3 - 2023-25 season) 2024 [facility]-Influenza Vaccine (1) 04/03/2025 All medications have been reviewed today. The following portions of the patient's chart were reviewed in this encounter and updated as appropriate: past medical history, surgical history, family history, tobacco history, allergies, and medications Over the last 2 weeks, how often have you been bothered by any of the following problems? Little interest or pleasure in doing things: Not at all Feeling down, depressed, or hopeless: Nearly every day Trouble falling or staying asleep, or sleeping too much: Nearly every day Feeling tired or having little energy: Nearly every day Poor appetite or overeating: Nearly every day Feeling bad about yourself - or that you are a failure or have let yourself or your family down: Nearly every day Trouble concentrating on things, such as reading the newspaper or watching television: Nearly everyday Moving or speaking so slowly that other people could have noticed? Or the opposite - being so fidgety or restless that you have been moving around a lot more than usual.: Nearly every day Thoughts that you would be better off or hurting yourself in some way: Nearly every day Patient Health Questionnaire-9 Score: 24 Review of Systems Constitutional: Positive for activity change, appetite change (foods taste like chemicals), diaphoresis and unexpected weight change. HENT: Lymph nodes swell and sore throat in bed. Bathroom is sealed. Has air purifier Eyes: Positive for visual disturbance. Respiratory: Positive for cough, chest tightness (every day) and shortness of breath (constantly). Negative for choking. Using albuterol Cardiovascular: Positive for chest pain (burning.pressure) and palpitations (pounding and racing). Gastrointestinal: Positive for abdominal distention, abdominal pain (shooting and migratory pain), diarrhea, nausea and vomiting. Negative for anal bleeding, blood in stool and rectal pain. Constipation: minimal. Endocrine: Positive for heat intolerance. Negative for polyuria. Genitourinary: Negative for dysuria and flank pain. Urgency Musculoskeletal: Positive for back pain. Skin: Positive for rash (breasts). Neurological: Positive for dizziness and light-headedness. Negative for tremors, speech difficulty,weakness and headaches (pressure, back and front). Losing words Hematological: Bruises/bleeds easily. Her PQ9 is 24, her SHELTON 7 is 18 Objective Vitals: 03/28/25 1438 BP: 103/70 Pulse: 68 Resp: 18 Temp: 36.7 ??C (98 ??F) SpO2: 98% Physical Exam Constitutional: General: She is not in acute distress. Appearance: Normal appearance. She is toxic-appearing (manic like appearance). She is not ill-appearing or diaphoretic. HENT: Head: Normocephalic and atraumatic. Neck: Thyroid: No thyromegaly. Vascular: No carotid bruit. Cardiovascular: Rate and Rhythm: Normal rate and regular rhythm. Heart sounds: Normal heart sounds. Pulmonary: Effort: Pulmonary effort is normal. Breath sounds: Normal breath sounds. Chest: Breasts: Galileo Score is 5. Abdominal: General: Abdomen is flat. Bowel sounds are normal. Tenderness: There is no abdominal tenderness. Lymphadenopathy: Cervical: No cervical adenopathy. Neurological: Mental Status: She is alert. Psychiatric: Speech: Speech is rapid and pressured and tangential. Behavior: Behavior is agitated. Thought Content: Thought content is not paranoid or delusional. Thought content does not include homicidal or suicidal ideation. Thought content does not include homicidal or suicidal plan. Cognition and Memory: Memory is impaired. She exhibits impaired recent memory. Comments: Loquacious, grounding herself at times on there . Mood is flighty ECG [Non-[facility]] (Now - Performed and Interpreted in your clinic) Performed by: Olivia Valle APRN Authorized by: Olivia Valle APRN Previous ECG: Previous ECG: Unavailable Interpretation: Interpretation: abnormal Rate: ECG rate: 60 ECG rate assessment: normal Rhythm: Rhythm: sinus rhythm Ectopy: Ectopy: none QRS: QRS axis: Normal QRS intervals: Normal Conduction: Conduction: normal ST segments: ST segments: Abnormal Depression: V3 and V4 T waves: T waves: flattening Flattening: V2 Q waves: Q waves: AVL Other findings: Other findings: poor R wave progression Outside lab reviewd from [facility] dated 02/14/2025 fasting shows CBC with Diff all normal except a slightly elevated Hgb at 47.6 Lyme line blot test shows Positive IGG with five different IGG types positve and a confirmatory testing of 3 types and two confirmed absent and one previously present is recorded as absent. CMP shows a EGFR as 59 and flagged as Low, Creatinine 1.1 as high. Glucose is 101 Lipid panel shows Total cholesterol as 224 with and LDL as 162 A1c 5.6 TSH normal at 2.65 Rheumatoid factor is negative Vitamin D is considered low at 26.9 CRP is negative at 1.27 ESR is 3 Ferritin is high at 178 Thyroid anitboides neg. T3 normal SUNSHINE is negative Assessment/Plan Problem List Items Addressed This Visit None Visit Diagnoses Chest pain, unspecified type - Primary Relevant Orders ECG [Non[facility]] (Now - Performed and Interpreted in your clinic) Adult Patch Monitor - 14 Day Ambulatory referral to Infectious Disease Nausea Relevant Medications ondansetron ODT (Zofran-ODT) 4 MG disintegrating tablet Bruising Relevant Orders Iron & Total Iron Binding Capacity, Plasma (Includes Transferrin) Ferritin, Serum CBC and Differential Protime-INR Ambulatory referral to Infectious Disease Health maintenance examination Relevant Orders Comprehensive Metabolic Panel, Plasma Hepatitis C Antibody w/Reflex to HCV Quant PCR HIV 1 & 2 Antibody/Antigen Screen w/Reflex to HIV 1/2 Differentiation TSH Reflex FT4 Neurocognitive disorder Relevant Orders Ambulatory referral to Infectious Disease Emotional lability ER precautions given to her /significant other for severe chest pain, trouble breathing. Will try mediation for centering and reducing her sympathetic input. Okay to use gummies for sleep if from a reputable source. Returning on 04/05 and will consider drug testing and getting any labs that were not able to be drawn today. Patient requests to hold all vaccines until we get more answers. Labs drawn today but appears it may be incomplete set as ordered. Patient reported to me after the visit she had a episode during phlebotomy. Olivia Valle, BURRER MARKER AXLE [1] Past Medical History: Diagnosis Date ADHD Breast cancer Cancer of fallopian tube (CMS/HCC) Gallstones Lyme disease Personal history of other benign neoplasm History of uterine leiomyoma Personal history of other endocrine, nutritional and metabolic disease History of hypothyroidism with history of ectopic x4 [2] Family History Problem Relation Name Age of Onset Hyperlipidemia Mother COPD Maternal Grandmother Other (old age) Maternal Grandfather 90 - 99 Hyperlipidemia Other Glaucoma Other ALS Other [3] Past Surgical History: Procedure Laterality Date APPENDECTOMY N/A Appendectomy from [facility] HYSTERECTOMY N/A Hysterectomy from [facility] TONSILLECTOMY N/A Tonsillectomy from [facility] [4] Current Outpatient Medications on File Prior to Visit Medication 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 (Patient taking differently: Take 2 tablets by mouth daily.) progesterone (Prometrium) 200 MG capsule Take 1 capsule by mouth every evening. No current facility-administered medications on file prior to visit. [5] Allergies Allergen Reactions Prednisone Anxiety, Other - please document in the comment field, Hallucinations and Itching documented in this encounter Plan of Treatment Upcoming Encounters Date Type Department Care Team (Late st Contact Info) Description 04/05/2025 3:40 PM EDT Office Visit [facility] [address], [facility] [address] [place] [address] Olivia Valle BURRER MARKER AXLE [address] [place] [address] 04/24/2025 9:00 AM EDT Office Visit [facility] [address] [place] [address] Damien Boo MD [facility] [address] [place] [address] Pending Results Name Type Priority Associated Diagnoses Date /Time Adult Patch Monitor - 7 Day Cardiac Services Routine Chest pain, unspecified type 03/29/2025 10:16 AM EDT Scheduled Orders Name Type Priority Associated Diagnoses Orde r Schedule TSH Reflex FT4 Lab Routine Health maintenance examination Ordered: 03/28/2025 Protime-INR Lab Routine Bruising Expected: 03/28/2025 (Approximate), Expires: 09/29/2026 Adult Patch Monitor - 7 Day Cardiac Services Routine Chest pain, unspecified type Expected: 03/28/2025 (Approximate), Expires: 09/29/2026 Scheduled Referrals Name Type Priority Associated Diagnoses Order Schedule Ambulatory referral to Infectious Disease Outpatient Referral Routine Chest pain, unspecified type Bruising Neurocognitive disorder Expected: 03/28/2025 (Approximate), Expires: 09/29/2026 Ambulatory referral to Cardiology Outpatient Referral Routine Chest pain, unspecified type Expected: 03/28/2025 (Approximate), Expires: 09/29/2026 Ambulatory referral to Neurology Outpatient Referral Routine Neurocognitive disorder 1 Occurrences starting 03/28/2025 until 09/29/2026 documented as of this encounter Procedures Procedure Name Priority Date/Time Associated Diagnosis Comments HIV 1/2 ANTIBODY/ANTIGEN SCREEN W/REFLEX TO HIV 1/2 ANTIBODY DIFFERENTIATION Routine 03/28/2025 4:23 PM EDT Health maintenance examination HIV 1/2 ANTIBODY/ANTIGEN SCREEN WITH REFLEX TO HIV I/II DIFFERENTIATION Routine 03/28/2025 4:23 PM EDT Health maintenance examination HEPATITIS C ANTIBODY W/REFLEX TO HCV QUANT PCR Routine 03/28/2025 4:23 PM EDT Health maintenance examination IRON & TOTAL IRON BINDING CAPACITY, PLASMA (INCLUDES TRANSFERRIN) Routine 03/28/2025 4:23 PM EDT Bruising CBC WITH AUTO DIFFERENTIAL Routine 03/28/2025 4:23 PM EDT Bruising FERRITIN, SERUM Routine 03/28/2025 4:23 PM EDT Bruising COMPREHENSIVE METABOLIC PANEL, PLASMA Routine 03/28/2025 4:23 PM EDT Health maintenance examination ECG IN-CLINIC INTERP (NON-MUSE) Routine 03/28/2025 2:40 PM EDT Chest pain, unspecified type documented in this encounter Results * HIV 1 & 2 Antibody/Antigen Screen (03/28/2025 4:23 PM EDT) HIV 1 & 2 Antibody/Antigen Screen Non Reactive Non Reactive 03/28/2025 7:[address] [facility] Comment:Screening for HIV 1 & 2 antibodies, and P24 antigen is NONREACTIVE. No confirmatory testing is required. Blood Venous blood specimen / Unknown Venipuncture / Unknown 03/28/2025 4:23 PM EDT 03/28/2025 4:23 PM EDT Olivia Valle BURRER MARKER AXLE LAB BLOOD ORDERABLES Noni l Result [facility] [address] [place] [address] * Hepatitis C Antibody w/Reflex to HCV Quant PCR (03/28/2025 4:23 PM EDT) Pathologist [facility] Hepatitis C Antibody Negative Negative 03/28/2025 7:[address] [facility] Blood Venous blood specimen / Unknown Venipuncture / Unknown 03/28/2025 4:23 PM EDT 03/28/2025 4:23 PM EDT Olivia Valle BURR[employer] MARKER AXLE LAB BLOOD ORDERABLES Noni l Result Performing Organization Address [facility]/ZIP Co de Phone Number [facility] [address] [place] [address] * (ABNORMAL) Comprehensive Metabolic Panel, Plasma (03/28/2025 4:23 PM EDT) [facility] Glucose, Plasma 94 74 - 99 mg/dL 03/28/2025 7:[address] [facility] BUN, Plasma 15 7 - 21 mg/dL 03/28/2025 7:[address] [facility] Creatinine, Plasma 1.02 0.60 - 1.10 mg/dL 03/28/2025 7:[address] [facility] BUN/Creatinine Ratio 15 03/28/2025 7:[address] [facility] Sodium, Plasma 140 136 - 145 mmol/L 03/28/2025 7:[address] [facility] Potassium, Plasma 4.1 3.6 - 4.9 mmol/L 03/28/2025 7:[address] [facility] Chloride, Plasma 108(H) 97 - 107 mmol/L 03/28/2025 7:[address] [facility] CO2, Plasma 20(L) 22 - 29 mmol/L 03/28/2025 7:[address] [facility] Anion Gap 12 6 - 16 mmol/L 03/28/2025 7:[address] [facility] Total Calcium, Plasma 9.3 8.9 - 10.2 mg/dL 03/28/2025 7:[address] [facility] Total Protein 7.1 6.3 - 7.9 g/dL 03/28/2025 7:[address] [facility] Albumin, Plasma 4.2 3.5 - 5.2 g/dL 03/28/2025 7:[address] [facility] AST, Plasma 15 10 - 35 U/L 03/28/2025 7:[address] [facility] ALT, Plasma 18 10 - 35 U/L 03/28/2025 7:[address] [facility] Alkaline Phosphatase, Plasma 74 35 - 104 U/L 03/28/2025 7:[address] [facility] Total Bilirubin, Plasma 0.4 0.2 - 1.1 mg/dL 03/28/2025 7:[address] [facility] eGFRcr 65.1 mL/min/1.7 3m*2 03/28/2025 7:[address] [facility] Comment:Reported eGFRcr in m L/min/1.73m2 is based the CKD-EPI 2020 equation that does not use a race coefficient. Blood Venous blood specimen / Unknown Venipuncture / Unknown 03/28/2025 4:23 PM EDT 03/28/2025 4:23 PM EDT us Olivia Valle APRN LAB BLOOD ORDERABLES Noni l Result [facility] [address] [place] [address] * CBC and Differential (03/28/2025 4:23 PM EDT) WBC Count 8.17 3.70 - 10.30 10*3/uL LAB HEMATOLOGY METHOD 03/28/2025 6:[address] [facility] RBC Count 4.66 3.90 - 5.20 10*6/uL LAB HEMATOLOGY METHOD 03/28/2025 6:[address] [facility] HGB 13.7 11.2 - 15.7 g/dL LAB HEMATOLOGY METHOD 03/28/2025 6:[address] [facility] HCT 41.0 34.0 - 45.0 % LAB HEMATOLOGY METHOD 03/28/2025 6:[address] [facility] Platelet Count 244 155 - 369 10*3/uL LAB HEMATOLOGY METHOD 03/28/2025 6:[address] [facility] MCV 88 79 - 98 fL LAB HEMATOLOGY METHOD 03/28/2025 6:[address] [facility] MCH 29.4 26.0 - 32.0 pg LAB HEMATOLOGY METHOD 03/28/2025 6:[address] [facility] MCHC 33.4 30.7 - 35.5 g/dL LAB HEMATOLOGY METHOD 03/28/2025 6:[address] [facility] RDW 12.4 11.5 - 14.5 % LAB HEMATOLOGY METHOD 03/28/2025 6:[address] [facility] MPV 12.5 8.8 - 12.5 fL LAB HEMATOLOGY METHOD 03/28/2025 6:[address] [facility] nRBC 0.0 <=0.0 per 100 WBCs LAB HEMATOLOGY METHOD 03/28/2025 6:[address] [facility] Differential Type Automated LAB HEMATOLOGY METHOD 03/28/2025 6:[address] [facility] Neutrophils % 60 % LAB HEMATOLOGY METHOD 03/28/2025 6:[address] [facility] Lymphocytes % 31 % LAB HEMATOLOGY METHOD 03/28/2025 6:[address] [facility] Monocytes % 4 % LAB HEMATOLOGY METHOD 03/28/2025 6:[address] [facility] Eosinophils % 3 % LAB HEMATOLOGY METHOD 03/28/2025 6:[address] [facility] Basophils % 1 % LAB HEMATOLOGY METHOD 03/28/2025 6:[address] [facility] Immature Granulocytes % 1 % LAB HEMATOLOGY METHOD 03/28/2025 6:[address] [facility] Neutrophils Absolute 5.00 1.60 - 6.10 10*3/uL LAB HEMATOLOGY METHOD 03/28/2025 6:[address] [facility] Lymphocytes Absolute 2.49 1.20 - 3.90 10*3/uL LAB HEMATOLOGY METHOD 03/28/2025 6:[address] [facility] Monocytes Absolute 0.34 0.30 - 0.90 10*3/uL LAB HEMATOLOGY METHOD 03/28/2025 6:[address] [facility] Eosinophils Absolute 0.24 0.00 - 0.50 10*3/uL LAB HEMATOLOGY METHOD 03/28/2025 6:[address] [facility] Basophils Absolute 0.06 0.00 - 0.10 10*3/uL LAB HEMATOLOGY METHOD 03/28/2025 6:[address] [facility] Immature Granulocytes Absolute 0.04 0.00 - 0.06 10*3/uL LAB HEMATOLOGY METHOD 03/28/2025 6:[address] [facility] Blood Venous blood specimen / Unknown Venipuncture / Unknown 03/28/2025 4:23 PM EDT 03/28/2025 4:[address] [facility] - 03/28/2025 6:52 PM EDT Therapeutic decision making should be based on absolute values, rather than percentages. Olivia Valle APRN LAB BLOOD ORDERABLES Noni l Result [facility] [address] [place] [address] * (ABNORMAL) Ferritin, Serum (03/28/2025 4:23 PM EDT) Ferritin, Serum 189(H) 13 - 150 ng/mL 03/28/2025 7:[address] [facility] Blood Venous blood specimen / Unknown Venipuncture / Unknown 03/28/2025 4:23 PM EDT 03/28/2025 4:23 PM EDT Olivia Valle BURRER MARKER AXLE LAB BLOOD ORDERABLES Noni l Result [facility] [address] [place] [address] * Iron & Total Iron Binding Capacity, Plasma (Includes Transferrin) (03/28/2025 4:23 PM EDT) Iron, Plasma 97 30 - 160 ug/dL 03/28/2025 7:[address] [facility] Transferrin, Plasma 216 200 - 360 mg/dL 03/28/2025 7:[address] [facility] Total Iron Binding Capacity, Plasma 270 240 - 450 ug/mL 03/28/2025 7:[address] [facility] Transferrin Saturation 36 14 - 50 % 03/28/2025 7:[address] [facility] Blood Venous blood specimen / Unknown Venipuncture / Unknown 03/28/2025 4:23 PM EDT 03/28/2025 4:23 PM EDT Olivia Valle APRN LAB BLOOD ORDERABLES Noni grigsby Result [facility] [address] [place] [address] * (ABNORMAL) ECG IN-CLINIC INTERP (NON-MUSE) (03/28/2025 2:40 PM EDT) Narrative MUSE ECG - 03/28/2025 2:40 PM EDT Olivia Valle APRN 03/28/2025 9:11 PM ECG [Non-[facility]] (Now - Performed and Interpreted in your clinic) Performed by: Olivia Valle APRN Authorized by: Olivia Valle APRN Previous ECG: Previous ECG: Unavailable Interpretation: Interpretation: abnormal Rate: ECG rate: 60 ECG rate assessment: normal Rhythm: Rhythm: sinus rhythm Ectopy: Ectopy: none QRS: QRS axis: Normal QRS intervals: Normal Conduction: Conduction: normal ST segments: ST segments: Abnormal Depression: V3 and V4 T waves: T waves: flattening Flattening: V2 Q waves: Q waves: AVL Other findings: Other findings: poor R wave progression Procedure Note Olivia Valle APRN - 03/28/2025 2:40 PM EDT Images from the original note were not included. Subjective Christopher Higgins HPI Ms. Higgins presents as a new patient today. She complains of anxiety,neurocognitive changes (word searching). Chest pain, nausea and vomiting.Reports she is able to calm with ativan and THC products only butfrequent spiraling out of control, having chest burning at rest,unresponsive to antacids. See ROS. Reports she was previously managed by [facility] in [place], [place] andwas told she had Lyme by [facility] Line Blot interpretation. 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 Reports having a known embedded tick a year ago onher right upper leg. She had several in her hair/head, one on leftshoulder and one on her chest and has small red areas in some of thoseplaces. She has several other red areas that were ticks and her breastsboth have a pink confluent rash excluding the areola. Patient reports a family member is a psychologist and has been workingwith her and does not feel she has a mental disease or syndrome. but is inneed of a medical diagnosis and is spiraling out of fear of the unknown. Reports she moved to [place] from [place] six years ago. Lives in [facility]. Patient reports that to date her symptoms have been dismissed asmenopausal. Past Medical History[1] Family History[2] Surgical History[3] Social History Socioeconomic History Marital status: Spouse name: Not on file Number of children: Not on file Years of education: Not on file Highest education level: Not on file Occupational History Not on file Tobacco Use Smoking status: Every Day Current packs/day: 0.50 Average packs/day: 0.5 packs/day for 41.6 years (20.8 ttl pk-yrs) Types: Cigarettes Start date: 1983 Smokeless tobacco: Never Tobacco comments: Smokes 1 to 10 cigarettes per day Vaping Use Vaping status: Never Used Substance and Sexual Activity Alcohol use: Not Currently Comment: Alcoholic Drinks/day: Consumes alcohol weekly Drug use: No Comment: Drug use: No illicit drug use Sexual activity: Not on file Other Topics Concern Not on file Social History Narrative Marital Status:Single Social Drivers of Health Financial Resource Strain: Not on file Food Insecurity: Not on file Transportation Needs: Not on file Physical Activity: Not on file Stress: Not on file Social Connections: Not on file Intimate Partner Violence: Not on file Housing Stability: Not on file Medications Ordered Prior to Encounter[4] Allergies[5] Health Maintenance Due Topic Date Due [facility]-HIV Screening Never done [facility]-Hepatitis C Screening Never done [facility]- SDOH Screenings Never done [facility]-DTaP,Tdap,and Td Vaccines (1 - Tdap) Never done [facility]-Hepatitis B Vaccines (1 of 3 - 19+ 3-dose series) Never done [facility]-Pneumococcal Vaccine: 50+ Years (1 of 2 - PCV) Never done [facility]-Colorectal Cancer Screening Never done [facility]-Breast Cancer Screening Never done [facility]-Zoster Vaccines (1 of 2) Never done [facility]-Lung Cancer Screening Never done [id number] Vaccine ( - 2023- season) 2024 [facility]-Influenza Vaccine (1) 04/03/2025 All medications have been reviewed today. The following portions of the [facility] and updated [facility] appropriate: past medical history, surgicalhistory, family history, tobacco history, allergies, and medications Over the last 2 weeks, how often have you been bothered by any of thefollowing problems? Little interest or pleasure in doing things: Not at all Feeling down, depressed, or hopeless: Nearly every day Trouble falling or staying asleep, or sleeping too much: Nearly everyday Feeling tired or having little energy: Nearly every day Poor appetite or overeating: Nearly every day Feeling bad about yourself - or that you are a failure or have letyourself or your family down: Nearly every day Trouble concentrating on things, such as reading the newspaper or watchingtelevision: Nearly every day Moving or speaking so slowly that other people could have noticed? Or theopposite - being so fidgety or restless that you have been moving around alot more than usual.: Nearly every day Thoughts that you would be better off or hurting yourself in someway: Nearly every day Patient Health Questionnaire-9 Score: 24 Review of Systems Constitutional: Positive for activity change, appetite change (foodstaste like chemicals), diaphoresis and unexpected weight change. HENT: Lymph nodes swell and sore throat in bed. Bathroom is sealed. Hasair purifier Eyes: Positive for visual disturbance. Respiratory: Positive for cough, chest tightness (every day) andshortness of breath (constantly). Negative for choking. Using albuterol Cardiovascular: Positive for chest pain (burning.pressure) andpalpitations (pounding and racing). Gastrointestinal: Positive for abdominal distention, abdominal pain(shooting and migratory pain), diarrhea, nausea and vomiting. Negative foranal bleeding, blood in stool and rectal pain. Constipation: minimal. Endocrine: Positive for heat intolerance. Negative for polyuria. Genitourinary: Negative for dysuria and flank pain. Urgency Musculoskeletal: Positive for back pain. Skin: Positive for rash (breasts). Neurological: Positive for dizziness and light-headedness. Negative fortremors, speech difficulty, weakness and headaches (pressure, back andfront). Losing words Hematological: Bruises/bleeds easily. Her PQ9 is 24, her SHELTON 7 is 18 Objective Vitals: 03/28/25 1438 BP: 103/70 Pulse: 68 Resp: 18 Temp: 36.7 C (98 F) SpO2: 98% Physical Exam Constitutional: General: She is not in acute distress. Appearance: Normal appearance. She is toxic-appearing (manic likeappearance). She is not ill-appearing or diaphoretic. HENT: Head: Normocephalic and atraumatic. Neck: Thyroid: No thyromegaly. Vascular: No carotid bruit. Cardiovascular: Rate and Rhythm: Normal rate and regular rhythm. Heart sounds: Normal heart sounds. Pulmonary: Effort: Pulmonary effort is normal. Breath sounds: Normal breath sounds. Chest: Breasts: Galileo Score is 5. Abdominal: General: Abdomen is flat. Bowel sounds are normal. Tenderness: There is no abdominal tenderness. Lymphadenopathy: Cervical: No cervical adenopathy. Neurological: Mental Status: She is alert. Psychiatric: Speech: Speech is rapid and pressured and tangential. Behavior: Behavior is agitated. Thought Content: Thought content is not paranoid or delusional. Thoughtcontent does not include homicidal or suicidal ideation. Thought contentdoes not include homicidal or suicidal plan. Cognition and Memory: Memory is impaired. She exhibits impaired recentmemory. Comments: Loquacious, grounding herself at times on there .Mood is flighty ECG [Non[facility]] (Now - Performed and Interpreted in your clinic) Performed by: Olivia Valle APRN Authorized by: Olivia Valle APRN Previous ECG: Previous ECG: Unavailable Interpretation: Interpretation: abnormal Rate: ECG rate: 60 ECG rate assessment: normal Rhythm: Rhythm: sinus rhythm Ectopy: Ectopy: none QRS: QRS axis: Normal QRS intervals: Normal Conduction: Conduction: normal ST segments: ST segments: Abnormal Depression: V3 and V4 T waves: T waves: flattening Flattening: V2 Q waves: Q waves: AVL Other findings: Other findings: poor R wave progression Outside lab reviewd from [facility] dated 02/14/2025 fasting shows CBC with Diff all normal except a slightly elevated Hgb at 47.6 Lyme line blot test shows Positive IGG with five different IGG typespositve and a confirmatory testing of 3 types and two confirmed absent andone previously present is recorded as absent. CMP shows a EGFR as 59 and flagged as Low, Creatinine 1.1 as high.Glucose is 101 Lipid panel shows Total cholesterol as 224 with and LDL as 162 A1c 5.6 TSH normal at 2.65 Rheumatoid factor is negative Vitamin D is considered low at 26.9 CRP is negative at 1.27 ESR is 3 Ferritin is high at 178 Thyroid anitboides neg. T3 normal SUNSHINE is negative Assessment/Plan Problem List Items Addressed This Visit None Visit Diagnoses Chest pain, unspecified type - Primary Relevant Orders ECG [Non[facility]] (Now - Performed and Interpreted in your clinic) Adult Patch Monitor - 14 Day Ambulatory referral to Infectious Disease Nausea Relevant Medications ondansetron ODT (Zofran-ODT) 4 MG disintegrating tablet Bruising Relevant Orders Iron & Total Iron Binding Capacity, Plasma (Includes Transferrin) Ferritin, Serum CBC and Differential Protime-INR Ambulatory referral to Infectious Disease Health maintenance examination Relevant Orders Comprehensive Metabolic Panel, Plasma Hepatitis C Antibody w/Reflex to HCV Quant PCR HIV 1 & 2 Antibody/Antigen Screen w/Reflex to HIV 1/2 Differentiation TSH Reflex FT4 Neurocognitive disorder Relevant Orders Ambulatory referral to Infectious Disease Emotional lability ER precautions given to her /significant other for severe chestpain, trouble breathing. Will try mediation for centering and reducing her sympathetic input. Okay to use gummies for sleep if from a reputable source. Returning on 04/05 and will consider drug testing and getting any labsthat were not able to be drawn today. Patient requests to hold all vaccines until we get more answers. Labsdrawn today but appears it may be incomplete set as ordered. Patientreported to me after the visit she had a episode during phlebotomy. Olivia Valle APRN [1] Past Medical History: Diagnosis Date ADHD Breast cancer Cancer of fallopian tube (CMS/HCC) Gallstones Lyme disease Personal history of other benign neoplasm History of uterine leiomyoma Personal history of other endocrine, nutritional and metabolic disease History of hypothyroidism with history of ectopic x4 [2] Family History Problem Relation Name Age of Onset Hyperlipidemia Mother COPD Maternal Grandmother Other (old age) Maternal Grandfather 90 - 99 Hyperlipidemia Other Glaucoma Other ALS Other [3] Past Surgical History: Procedure Laterality Date APPENDECTOMY N/A Appendectomy from [facility] HYSTERECTOMY N/A Hysterectomy from [facility] TONSILLECTOMY N/A Tonsillectomy from [facility] [4] Current Outpatient Medications on File Prior to Visit Medication 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 (Patient takingdifferently: Take 2 tablets by mouth daily.) progesterone (Prometrium) 200 MG capsule Take 1 capsule by mouth everyevening. No current facility-administered medications on file prior to visit. [5] Allergies Allergen Reactions Prednisone Anxiety, Other - please document in the comment field,Hallucinations and Itching us Olivia Valle APRN ECG ORDERABLES Final Res ult MUSE ECG documented in this encounter Visit Diagnoses Diagnosis Chest pain, unspecified type- Primary Nausea Nausea alone Bruising Contusion of unspecified site Health maintenance examination Unspecified general medical examination Neurocognitive disorder Unspecified persistent mental disorders due to conditions classified elsewhere Emotional lability documented in this encounter Additional Health Concerns Assessment Noted Time PHQ-9 Depression Total Score: 24 025 2:55 PM EDT A Body Mass Index follow-up plan has been documented for the patient 03/28/2025 4:45 PM EDT documented as of this encounter Care Teams Mainspring Winder Relationship Specialty Start Date End Date Olivia Valle APRN [address] [place] [address] PCP - General 03/28/25 documented as of this encounter
--- OUTSIDE RECORDS SUMMARY | 2025-03-29 10:16 | XMS_ITS | Encounter Summary ---
Author Organization Healthcare Address [address] [place] [address] Care Team Providers Care Medical Secretary Teacher Name Role Phone Olivia Valle APRN Primary Care Provider [phone] Reason for Referral * Cardiac Stress Testing (Routine) - Closed Specialty Diagnoses / Procedures Referred By Contac t Referred To Contact Cardiology Diagnoses Chest pain, unspecified type Procedures Adult Patch Monitor - 7 Day Olivia Valle APRN [address] [place] [id number] Phone: tel: fax: Referral ID Status Reason Start Date Expiration Date Visits Re quested Visits Authorized [id number] Closed 03/28/2025 09/27/2026 1 1 Reason for Visit * Cardiac Stress Testing (Routine) - Closed Specialty Diagnoses / Procedures Referred By Contac t Referred To Contact Cardiology Diagnoses Chest pain, unspecified type Procedures Adult Patch Monitor - 7 Day Olivia Valle APRN [address] [place] [address] Phone: tel: fax: Referral ID Status Reason Start Date Expiration Date Visits Re quested Visits Authorized [id number] Closed 03/28/2025 09/27/2026 1 1 Encounter Details Date Type Department Care Team (Latest Contact Info) Description 03/29/2025 10:16 AM EDT - 03/29/2025 11:59 PM EDT Hospital Encounter Cardiac Imaging [address] [place] [address] Chest pain, unspecified type Discharge Disposition: Home or Self Care Social History Tobacco Use Types Packs/Day Years [...] on file documented as of this encounter Medications at Time of Discharge BDC MANAGER Thyroid 30 MG tablet Take 1 tablet by mouth daily. 02/10/2025 ondansetron ODT (Zofran-ODT) 4 MG disintegrating tabletIndications:Na usea Dissolve 1 tablet on the tongue every 8 hours as needed for nausea or vomiting. 20 tablet 03/28/2025 progesterone (Prometrium) 200 MG capsule Take 1 capsule by mouth every evening. 09/27/2024 documented as of this encounter Plan of Treatment Upcoming Encounters Date Type Department Care Team (Late st Contact Info) Description 04/05/2025 3:40 PM EDT Office Visit [facility] [address] [place] [address] Olivia Valle, FASHION STYLIST [address] [place] [address] 04/24/2025 9:00 AM EDT Office Visit [facility] [address], [address] [place] [address] Damien Boo MD [address] [place] [address] Pending Results Name Type Priority Associated Diagnoses Date /Time Adult Patch Monitor - 7 Day Cardiac Services Routine Chest pain, unspecified type 03/29/2025 10:16 AM EDT Scheduled Orders Name Type Priority Associated Diagnoses Orde r Schedule Adult Patch Monitor - 7 Day Cardiac Services Routine Chest pain, unspecified type Once for 1 Occurrences starting 03/29/2025 until 03/29/2025 documented as of this encounter Visit Diagnoses Diagnosis Chest pain, unspecified type documented in this encounter Additional Health Concerns Assessment Noted Time PHQ-9 Depression Total Score: 24 025 2:55 PM EDT A Body Mass Index follow-up plan has been documented for the patient 03/28/2025 4:45 PM EDT documented as of this encounter Care Teams Medical Secretary Teacher Relationship Specialty Start Date End Date Olivia Valle, RACHEL [address] [facility] [address] [place] [address] PCP - General 03/28/25 documented as of this encounter
[2025-04-01] VITALS (15 sets, daily range): BP systolic 0–145; BP diastolic 0–87; PULSE 0–79; RESP 0–20; TEMP -17.7–36.6; O2SAT 90–100; BMI 24.0
--- NOTE | 2025-04-01 09:03 | ECG_ITS ---
APPROVED REPORT Exam: Resting ECG HR:59 bpm ECG Measurements Heart Rate 59 AXES SD 161 P 60 QRSd 86 QRS 54 QT 426 T 7 QTc 426 Conclusion Sinus bradycardia Normal axis Normal intervals No STEMI Electronically signed by : Иван Kenyon, 04/01/2025 17:30:27
[2025-04-01 09:11] LABS: Hematocrit 38.5 % (37.0-47.0); Hemoglobin 13.4 g/dL (12.2-16.2); Immature Granulocytes % 0.3 %; Mean Corpuscular HGB Conc 34.8 g/dL (31.8-35.4); Mean Corpuscular Hemoglobin 29.8 pg (27.0-31.2); Mean Corpuscular Volume 85.7 fl (81-99); Nucleated Red Blood Cells % 0 %; Platelet Count 229 K/mm3 (142-424); Red Blood Count 4.49 M/mm3 (4.20-5.40); Red Cell Distribution Width-SD 38.0 fL; White Blood Count 7.5 K/mm3 (4.8-10.8)
--- NOTE | 2025-04-01 09:15 | PC.NURSE ---
speaking with [facility]
[2025-04-01 09:18] LABS: Lipase 182 U/L (23-300)
[2025-04-01 09:19] LABS: Alanine Aminotransferase 22 U/L (12-78); Albumin Level 4.3 g/dl (3.5-5.0); Albumin/Globulin Ratio 1.5 (1.1-1.8); Alkaline Phosphatase 66 U/L (38-126); Anion Gap 18.4 mEq/L (5-15); Aspartate Amino Transferase 28 U/L (14-36); Bilirubin,Total 0.7 mg/dl (0.2-1.3); Blood Urea Nitrogen 19 mg/dl (7-17); Calcium 9.5 mg/dl (8.4-10.2); Carbon Dioxide 13 mmol/L (22.0-30.0); Chloride 111 mmol/L (98-107); Creatinine Clearance Estimated 58 mL/min (50-200); Creatinine,Serum 1.10 mg/dl (0.52-1.04); Estimated Glomerular Filt Rate 52 ml/min (>60); GFR (African American) 62 ML/MIN (>60); Globulin 2.8 g/dL (1.3-3.2); Glucose 101 mg/dl (74-100); Potassium 4.4 mmoL/L (3.5-5.1); Sodium 138 mmol/L (136-145); Total Protein,Serum 7.1 g/dl (6.3-8.2)
--- OUTSIDE RECORDS SUMMARY | 2025-04-01 09:23 | XMS_ITS | Encounter Summary ---
Author Organization Healthcare Address [address] [place] [address] Care Team Providers Care Cw Operator Name Role Phone Valle, Oliviabrijesh Shelton APRN Primary Care Provider [phone] Encounter Details Date Type Department Care Team (Latest Contact Info) Description 03/28/2025 Travel Social History Tobacco Use Types Packs/Day Years [...] on file documented as of this encounter Functional Status * AUDIT-C Score Answer Date of Assessment Author 0 03/28/2025 2:39 PM EDT Fortino Enrique * Question Answer Date of Assessment Author Q1: How often do you have a drink containing alcohol? Never 03/28/2025 2:39 PM EDT Indy Enrique Q2: How many drinks containing alcohol do you have on a typical day when you are drinking? Patient does not drink 03/28/2025 2:39 PM EDIndy Stanley Q3: How often do you have six or more drinks on one occasion? Never 03/28/2025 2:39 PM Indy Haines * Over the past 2 weeks, how often have you been bothered by any of the following problems? Question Answer Date of Assessment Author Little interest or pleasure in doing things Not at all 03/28/2025 2:55 PM EDIndy Stanley Feeling down, depressed, or hopeless Nearly every day 03/28/2025 2:55 PM EDIndy Stanley Patient Health Questionnaire -2 Score 3 03/28/2025 2:55 PM Indy Haines * Question Answer Date of Assessment Author [...] down Nearly every day 03/28/2025 2:55 PM EDT Indy Enrique Trouble concentrating on things, such as reading the newspaper or watching television Nearly every day 03/28/2025 2:55 PM EDT Indy Enrique Moving or speaking so slowly that other people could have noticed? Or the opposite - being so fidgety or restless that you have been moving around a lot more than usual. Nearly every day 03/28/2025 2:55 PM EDIndy Stanley Thoughts that you would be better off or hurting yourself in some way Nearly every day 03/28/2025 2:55 PM EDIndy Stanley Patient Health Questionnaire -9 Score 24 03/28/2025 2:55 PM EDIndy Stanley * If you checked off any problems [...] Author Extremely difficult 03/28/2025 2:55 PM EDT Indy Enrique documented as of this encounter Plan of Treatment Upcoming Encounters Date Type Department Care Team (Late st Contact Info) Description 04/05/2025 3:40 PM EDT Office Visit [facility] [address] [place] [address] Olivia Valle, SHAPE CARVER [address] [place] [address] 04/24/2025 9:00 AM EDT Office Visit [facility] [address] [place] [address] [address] [place] [address] Damien Boo MD [address] [place] [address] documented as of this encounter Visit Diagnoses Not on filedocumented in this encounter Additional Health Concerns Assessment Noted Time PHQ-9 Depression Total Score: 24 025 2:55 PM EDT A Body Mass Index follow-up plan has been documented for the patient 03/28/2025 4:45 PM EDT documented as of this encounter Care Teams Cw Operator Relationship Specialty Start Date End Date Olivia Valle, SHAPE CARVER [address] [place] [address] PCP - General 03/28/25 documented as of this encounter
--- OUTSIDE RECORDS SUMMARY | 2025-04-01 09:23 | XMS_ITS | Clinical Summary ---
Author Organization Healthcare Address [address] 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 5 Active progesterone (Prometrium) 200 MG capsule Take 1 capsule by mouth every evening. 5 Active ondansetron ODT (Zofran-ODT) 4 MG disintegrating tabletIndications:N ausea Dissolve 1 tablet on the tongue every 8 hours as needed for nausea or vomiting. 20 tablet 5 Active Encounters Date Type Department Care Team Description 03/29/2025 10:16 AM EDT - 03/29/2025 11:59 PM EDT Hospital Encounter Cardiac Imaging [address] [place] [address] Chest pain, unspecified type Discharge Disposition: Home or Self Care 03/29/2025 Travel 03/28/2025 2:40 PM EDT Office Visit [facility] [address], [address] [place] [address] Olivia Valle APRN Chest pain, unspecified type (Primary Dx); Nausea; Bruising; Health maintenance examination; Neurocognitive disorder; Emotional lability 03/28/2025 Travel from Last 3 Months Family History Medical History Relation Name Comments old age Maternal Grandfather COPD Maternal Grandmother Hyperlipidemia Mother ALS Other Glaucoma Other Hyperlipidemia Other Relation Name Status Comments Father Unknown Maternal Grandfather Maternal Grandmother Mother Alive Other Social History Tobacco Use Types Packs/Day Years [...] on file Sexual Orientation Not on file Last Filed Vital Signs Vital Sign Reading [...] Mass Index 25.29 03/28/2025 2:38 PM EDT Plan of Treatment Upcoming Encounters Date Type Department Care Team (Late st Contact Info) Description 04/05/2025 3:40 PM EDT Office Visit [facility] [address], [address] [place] [address] Olivia Valle, SECURITY CONSULTANT [address] [facility] [address] [place] [address] 04/24/2025 9:00 AM EDT Office Visit [facility] [address], [address] [place] [address] Damien Boo MD [address] [place] [address] Health Maintenance Due Date Last Done Comments [facility]-/Child/Adol SDOH Screenings 1970 [facility]- SDOH Screenings 02/03/1988 [facility]-Adult SDOH Screenings 02/03/1988 [facility]-DTaP,Tdap,and Td Vaccine s (1 - Tdap) 1989 [facility]-Hepatitis B Vaccines (1 of 3 - 19+ 3-dose series) 1989 [facility]-Pneumococcal Vaccine: 50 + Years (1 of 2 - PCV) 1989 CT Colonography 2015 Colonoscopy 2015 FIT-DNA 2015 FIT 2015 FOBT 2015 Sigmoidoscopy 2015 [facility]-Colorectal Cancer Screening 2015 [facility]-Breast Cancer Screening 02/03/2020 [facility]-Lung Cancer Screening 02/03/2020 [facility]-Zoster Vaccines (1 of 2) 02/03/2020 [id number] Vaccine (3 - season) 2024 07/18/2021, 11/07/2020 [facility]-Influenza Vaccine (#1) 2025 [facility]-Depression Screening 03/28/2026 025, 03/28/2025 [facility]-HIV Screening Completed 03/28/2025 [facility]-Hepatitis C Screening Completed 03/28/2025 [facility]-Obesity Intervention Completed 03/28/2025 HPV Vaccines Aged Out No longer eligi ble based on patient's age to complete this topic [facility]-HIB Vaccines Aged Out No longer e ligible based on patient's age to complete this topic [facility]-Hepatitis A Vaccines Aged Out No longer eligible based on patient's age to complete this topic [facility]-IPV Vaccines Aged Out No longer e ligible based on patient's age to complete this topic [facility]-Rotavirus Vaccines Aged Out No lo nger eligible based on patient's age to complete this topic Procedures Procedure Name Priority Date/Time Associated Diagnosis Comments HIV 1/2 ANTIBODY/ANTIGEN SCREEN WITH REFLEX TO HIV I/II DIFFERENTIATION Routine 03/28/2025 4:23 PM EDT Health maintenance examination HIV 1/2 ANTIBODY/ANTIGEN SCREEN W/REFLEX TO HIV 1/2 ANTIBODY DIFFERENTIATION Routine 03/28/2025 4:23 PM EDT Health maintenance examination HEPATITIS C ANTIBODY W/REFLEX TO HCV QUANT PCR Routine 03/28/2025 4:23 PM EDT Health maintenance examination COMPREHENSIVE METABOLIC PANEL, PLASMA Routine 03/28/2025 4:23 PM EDT Health maintenance examination CBC WITH AUTO DIFFERENTIAL Routine 03/28/2025 4:23 PM EDT Bruising FERRITIN, SERUM Routine 03/28/2025 4:23 PM EDT Bruising IRON & TOTAL IRON BINDING CAPACITY, PLASMA (INCLUDES TRANSFERRIN) Routine 03/28/2025 4:23 PM EDT Bruising ECG IN-CLINIC INTERP (NON-MUSE) Routine 03/28/2025 2:40 PM EDT Chest pain, unspecified type from Last 3 Months Results * HIV 1 & 2 Antibody/Antigen Screen (03/28/2025 4:23 PM EDT) HIV 1 & 2 Antibody/Antigen Screen Non Reactive Non Reactive 03/28/2025 7:17 PM EDT [facility] Comment:Screening for HIV 1 & 2 antibodies, and P24 antigen is NONREACTIVE. No confirmatory testing is required. Blood Venous blood specimen / Unknown Venipuncture / Unknown 03/28/2025 4:23 PM EDT 03/28/2025 4:23 PM EDT Olivia Valle APRN LAB BLOOD ORDERABLES Noni l Result [facility] [address] [place] [address] * Hepatitis C Antibody w/Reflex to HCV Quant PCR (03/28/2025 4:23 PM EDT) Hepatitis C Antibody Negative Negative 03/28/2025 7:17 PM EDT [facility] Blood Venous blood specimen / Unknown Venipuncture / Unknown 03/28/2025 4:23 PM EDT 03/28/2025 4:23 PM EDT Olivia Valle APRN LAB BLOOD ORDERABLES Noni l Result Performing Organization Address [facility]/ZIP Co de Phone Number [facility] [address] [place] [address] * Iron & Total Iron Binding Capacity, Plasma (Includes Transferrin) (03/28/2025 4:23 PM EDT) Pathologist [facility] Iron, Plasma 97 30 - 160 ug/dL 03/28/2025 7:07 PM EDT [facility] Transferrin, Plasma 216 200 - 360 mg/dL 03/28/2025 7:07 PM EDT [facility] Total Iron Binding Capacity, Plasma 270 240 - 450 ug/mL 03/28/2025 7:07 PM EDT [facility] Transferrin Saturation 36 14 - 50 % 03/28/2025 7:07 PM EDT [facility] Blood Venous blood specimen / Unknown Venipuncture / Unknown 03/28/2025 4:23 PM EDT 03/28/2025 4:23 PM EDT Result [facility] Olivia Valle APRN LAB BLOOD ORDERABLES Noni l Result Performing Organization Address City/[facility]/ZIP Co de Phone Number [facility] [address] [place] [address] * CBC and Differential (03/28/2025 4:23 PM EDT) WBC Count 8.17 3.70 - 10.30 10*3/uL LAB HEMATOLOGY METHOD 03/28/2025 6:52 PM EDT [facility] RBC Count 4.66 3.90 - 5.20 10*6/uL LAB HEMATOLOGY METHOD 03/28/2025 6:52 PM EDT [facility] HGB 13.7 11.2 - 15.7 g/dL LAB HEMATOLOGY METHOD 03/28/2025 6:52 PM EDT [facility] HCT 41.0 34.0 - 45.0 % LAB HEMATOLOGY METHOD 03/28/2025 6:52 PM EDT [facility] Platelet Count 244 155 - 369 10*3/uL LAB HEMATOLOGY METHOD 03/28/2025 6:52 PM EDT [facility] MCV 88 79 - 98 fL LAB HEMATOLOGY METHOD 03/28/2025 6:52 PM EDT [facility] MCH 29.4 26.0 - 32.0 pg LAB HEMATOLOGY METHOD 03/28/2025 6:52 PM EDT [facility] MCHC 33.4 30.7 - 35.5 g/dL LAB HEMATOLOGY METHOD 03/28/2025 6:52 PM EDT [facility] RDW 12.4 11.5 - 14.5 % LAB HEMATOLOGY METHOD 03/28/2025 6:52 PM EDT [facility] MPV 12.5 8.8 - 12.5 fL LAB HEMATOLOGY METHOD 03/28/2025 6:52 PM EDT [facility] nRBC 0.0 <=0.0 per 100 WBCs LAB HEMATOLOGY METHOD 03/28/2025 6:52 PM EDT [facility] Differential Type Automated LAB HEMATOLOGY METHOD 03/28/2025 6:52 PM EDT [facility] Neutrophils % 60 % LAB HEMATOLOGY METHOD 03/28/2025 6:52 PM EDT [facility] Lymphocytes % 31 % LAB HEMATOLOGY METHOD 03/28/2025 6:52 PM EDT [facility] Monocytes % 4 % LAB HEMATOLOGY METHOD 03/28/2025 6:52 PM EDT [facility] Eosinophils % 3 % LAB HEMATOLOGY METHOD 03/28/2025 6:52 PM EDT [facility] Basophils % 1 % LAB HEMATOLOGY METHOD 03/28/2025 6:52 PM EDT [facility] Immature Granulocytes % 1 % LAB HEMATOLOGY METHOD 03/28/2025 6:52 PM EDT [facility] Neutrophils Absolute 5.00 1.60 - 6.10 10*3/uL LAB HEMATOLOGY METHOD 03/28/2025 6:52 PM EDT [facility] Lymphocytes Absolute 2.49 1.20 - 3.90 10*3/uL LAB HEMATOLOGY METHOD 03/28/2025 6:52 PM EDT [facility] Monocytes Absolute 0.34 0.30 - 0.90 10*3/uL LAB HEMATOLOGY METHOD 03/28/2025 6:52 PM EDT [facility] Eosinophils Absolute 0.24 0.00 - 0.50 10*3/uL LAB HEMATOLOGY METHOD 03/28/2025 6:52 PM EDT [facility] Basophils Absolute 0.06 0.00 - 0.10 10*3/uL LAB HEMATOLOGY METHOD 03/28/2025 6:52 PM EDT [facility] Immature Granulocytes Absolute 0.04 0.00 - 0.06 10*3/uL LAB HEMATOLOGY METHOD 03/28/2025 6:52 PM EDT [facility] Blood Venous blood specimen / Unknown Venipuncture / Unknown 03/28/2025 4:23 PM EDT 03/28/2025 4:23 PM EDT Narrative [facility] - 03/28/2025 6:52 PM EDT Therapeutic decision making should be based on absolute values, rather than percentages. us Olivia Valle APRN LAB BLOOD ORDERABLES Noni l Result [facility] [address] [place] [address] * (ABNORMAL) Ferritin, Serum (03/28/2025 4:23 PM EDT) Ferritin, Serum 189(H) 13 - 150 ng/mL 03/28/2025 7:32 PM EDT [facility] Blood Venous blood specimen / Unknown Venipuncture / Unknown 03/28/2025 4:23 PM EDT 03/28/2025 4:23 PM EDT us Olivia Valle APRN LAB BLOOD ORDERABLES Noni calista Result [facility] [address] [place] [address] * (ABNORMAL) Comprehensive Metabolic Panel, Plasma (03/28/2025 4:23 PM EDT) Glucose, Plasma 94 74 - 99 mg/dL 03/28/2025 7:07 PM EDT [facility] BUN, Plasma 15 7 - 21 mg/dL 03/28/2025 7:07 PM EDT [facility] Creatinine, Plasma 1.02 0.60 - 1.10 mg/dL 03/28/2025 7:07 PM EDT [facility] BUN/Creatinine Ratio 15 03/28/2025 7:07 PM EDT [facility] Sodium, Plasma 140 136 - 145 mmol/L 03/28/2025 7:07 PM EDT [facility] Potassium, Plasma 4.1 3.6 - 4.9 mmol/L 03/28/2025 7:07 PM EDT [facility] Chloride, Plasma 108(H) 97 - 107 mmol/L 03/28/2025 7:07 PM EDT [facility] CO2, Plasma 20(L) 22 - 29 mmol/L 03/28/2025 7:07 PM EDT [facility] Anion Gap 12 6 - 16 mmol/L 03/28/2025 7:07 PM EDT [facility] Total Calcium, Plasma 9.3 8.9 - 10.2 mg/dL 03/28/2025 7:07 PM EDT [facility] Total Protein 7.1 6.3 - 7.9 g/dL 03/28/2025 7:07 PM EDT [facility] Albumin, Plasma 4.2 3.5 - 5.2 g/dL 03/28/2025 7:07 PM EDT [facility] AST, Plasma 15 10 - 35 U/L 03/28/2025 7:07 PM EDT [facility] ALT, Plasma 18 10 - 35 U/L 03/28/2025 7:07 PM EDT [facility] Alkaline Phosphatase, Plasma 74 35 - 104 U/L 03/28/2025 7:07 PM EDT [facility] Total Bilirubin, Plasma 0.4 0.2 - 1.1 mg/dL 03/28/2025 7:07 PM EDT [facility] eGFRcr 65.1 mL/min/1.7 3m*2 03/28/2025 7:07 PM EDT [facility] Comment:Reported eGFRcr in m L/min/1.73m2 is based the CKD-EPI 2020 equation that does not use a race coefficient. Blood Venous blood specimen / Unknown Venipuncture / Unknown 03/28/2025 4:23 PM EDT 03/28/2025 4:23 PM EDT Olivia Valle APRN LAB BLOOD ORDERABLES Noni grigsby Result Performing Organization Address City/State/[facility] Co de Phone Number [facility] [address] [place] [address] * (ABNORMAL) ECG IN-CLINIC INTERP (NON-MUSE) (03/28/2025 2:40 PM EDT) Narrative MUSE ECG - 03/28/2025 2:40 PM EDT Olivia Valle APRN 03/28/2025 9:11 PM ECG [Non-Dixon] (Now - Performed and Interpreted in your [...] original note were not included. Subjective Christopher Gisela HPI Ms. Higgins presents as a new patient today. She complains of anxiety,neurocognitive changes (word searching). Chest pain, nausea and vomiting.Reports she is able to calm with ativan and THC products only butfrequent spiraling out of control, having chest burning at rest,unresponsive to antacids. See ROS. Reports she was previously managed by [facility] in [place], [place] andwas told she had Lyme by [...] of the unknown. Reports she moved to [place] from [place] six years ago. Lives in [facility]. Patient reports that to date her [...] Never done [facility]-Lung Cancer Screening Never done [id number] Vaccine ( - 2023- season) 2024 [facility]-Influenza Vaccine (1) 04/03/2025 All medications have been reviewed today. The following portions of the patient's chart [facility] and updated as appropriate: past medical history, [...] times on there .Mood is flighty ECG [Non-Dixon] (Now - Performed and Interpreted in your [...] unspecified type - Primary Relevant Orders ECG [Non-Dixon] (Now - Performed and Interpreted in your [...] Procedure Laterality Date APPENDECTOMY N/A Appendectomy from [facility] HYSTERECTOMY N/A Hysterectomy from [facility] TONSILLECTOMY N/A Tonsillectomy from [facility] [4] Current Outpatient Medications on File Prior to Visit Medication Sig Dispense Refill PIPING DRAFTER Thyroid 30 MG tablet Take 1 tablet [...] ECG ORDERABLES Final Res ult MUSE ECG from Last 3 Months Insurance [employer] [place] Care Teams Security Assistant Relationship Specialty Start Date End Date Olivia Valle, SECURITY CONSULTANT [address] [place] [address] PCP - General 03/28/25
--- OUTSIDE RECORDS SUMMARY | 2025-04-01 09:23 | XMS_ITS | Encounter Summary ---
Author Organization Healthcare Address [address] [place] [address] Care Team Providers Care Melt Superintendant Name Role Phone Olivia Valle APRN Primary Care Provider [phone] [phone] Encounter Details Date Type Department Care Team (Latest Contact Info) Description 03/29/2025 Travel Social History Tobacco Use Types Packs/Day [...] on file documented as of this encounter Plan of Treatment Upcoming Encounters Date Type Department Care Team (Late st Contact Info) Description 04/05/2025 3:40 PM EDT Office Visit [facility] [address] [place] [address] Olivia Valle, RETAIL EXPERIENCE SPECIALIST [address] [facility] [address] [place] [address] 04/24/2025 9:00 AM EDT Office Visit [facility] [address] [facility] [address] [place] [address] Damien Boo MD [address] [place] [address] documented as of this encounter Visit Diagnoses Not on filedocumented in this encounter Additional Health Concerns Assessment Noted Time PHQ-9 Depression Total Score: 24 025 2:55 PM EDT A Body Mass Index follow-up plan has been documented for the patient 03/28/2025 4:45 PM EDT documented as of this encounter Care Teams Melt Superintendant Relationship Specialty Start Date End Date Olivia Valle, RETAIL EXPERIENCE SPECIALIST [address] [place] [address] [place] [address] PCP - General 03/28/25 documented as of this encounter
--- NOTE | 2025-04-01 09:27 | CT_ITS ---
PROCEDURE INFORMATION: Exam: CT Abdomen And Pelvis With Contrast Exam date and time: 04/01/2025 9:44 AM Age: 55 years old Clinical indication: Abdominal pain; Additional info: Abdominal pain since 0630 this morning, feels like a lot of pressure TECHNIQUE: Imaging protocol: Computed tomography of the abdomen and pelvis with contrast. Radiation optimization: All CT scans at this facility use at least one of these dose optimization techniques: automated exposure control; mA and/or kV adjustment per patient size (includes targeted exams where dose is matched to clinical indication); or iterative reconstruction. Contrast material: ISOVUE; Contrast volume: 75 ml; Contrast route: IV; COMPARISON: CT ANGIO CHEST 03/15/2025 5:07 AM FINDINGS: Liver: Normal. No mass. Gallbladder and biliary ducts: Normal. No calcified stones. No ductal dilation. Pancreas: Normal. No ductal dilation. Spleen: Normal. No splenomegaly. Adrenal glands: Normal. No mass. Kidneys and ureters: Normal. No hydronephrosis. Stomach and bowel: Unremarkable. No obstruction. No mucosal thickening. Appendix: Previous appendectomy. Intraperitoneal space: Unremarkable. No free air. No significant fluid collection. Vasculature: Unremarkable. No abdominal aortic aneurysm. Lymph nodes: Unremarkable. No enlarged lymph nodes. Urinary bladder: Unremarkable as visualized. Reproductive: Unremarkable as visualized. Bones/joints: Grade 1 anterolisthesis L5-S1 with bilateral spondylolysis. Severe disc space narrowing at this level. No acute fracture. Soft tissues: Unremarkable. IMPRESSION: No acute findings.
--- NOTE | 2025-04-01 09:32 | PC.NURSE ---
pt asked for some ice chips. Dr Kenyon advised that was fine. pt provided ice chips.
[2025-04-01 09:40] LABS: Troponin I < 0.01 ng/ml (0.00-0.034)
[2025-04-01] MEDS: IOPAMIDOL-370 (76%);100ML BOTTLE 75 ML IV (09:52)
[2025-04-01] MEDS: SODIUM CHLORIDE 0.9% 10ML SYR (RAD ONLY) 10 ML IV (09:52)
[2025-04-01] MEDS: LACTATED RINGERS 1000ML 1,000 ML 999 ML IV (09:53)
[2025-04-01] MEDS: ONDANSETRON 4MG/2ML VIAL 4 MG IV (09:54)
[2025-04-01 10:58] LABS: Microscopic, Urine URINE MICROSCOPIC (MICROSCOPIC)
[2025-04-01 11:24] LABS: Bilirubin,Urine Negative (Negative); Color,Urine YELLOW (Yellow); Glucose,Urine (UA) Negative (Negative); Ketones,Urine Negative (Negative); Leukocyte Esterase,Urine Negative (Negative); PH,Urine 6.0 (5.0-8.5); Protein,Urine Negative (Negative); Specific Gravity, Urine 1.015 (1.005-1.030); Urobilinogen,Urine 0.2 EU/dl (0.2)
--- NOTE | 2025-04-01 11:47 | PC.NURSE ---
I rounded on the pt. no new complaints at this time. no needs voiced. call gale in reach.
--- NOTE | 2025-04-01 11:57 | PC.NURSE ---
I rounded on the pt and took her a warm blanket for comfort. no needs voiced. call gale in reach.
[2025-04-01 12:23] LABS: Troponin I < 0.01 ng/ml (0.00-0.034)
[2025-04-01 12:23] LABS: Bacteria,Urine Trace /lpf; Squamous Epithelial Cell,Urine Occasional #/hpf (0-5); WBC,Urine Occasional #/hpf (0-3)
--- NOTE | 2025-04-01 12:40 | PC.NURSE ---
Surgery was just paged for this patient.
--- NOTE | 2025-04-01 12:42 | PC.NURSE ---
on the phone with
--- NOTE | 2025-04-01 12:48 | HMH.PHAINT1 ---
Pharmacy Intervention Comments: MEDICATION RECONCILIATION COMPLETED ON PATIENT USING EXTERNAL FILL HISTORY FROM PHARMACY. -AR HENDRICKS, TRACEYD
--- NOTE | 2025-04-01 13:07 | HMH.EDGENADL ---
Discharge Plan Disposition Patient Disposition: Left Against Medical Advice Condition: Fair Prescriptions Prescriptions: No Action thyroid (pork) [ATHLETIC TEAM PHYSICIAN Thyroid] 30 mg tablet 30 mg PO DAILY Patient Comments: TAKE 1 TABLET BY MOUTH ONCE DAILY Referrals Follow up/Referrals: Provider,Referral, [Primary Care Provider, Medical] - See instructions Clinical Impressions Clinical Impression: Left against medical advice, Acute cholecystitis Print Language Print Language: Russian Discharge ED Provider: Иван Kenyon Adult HPI General Chief complaint: PAIN Stated complaint: Flank pain Time Seen by Provider: 04/01/25 09:07 Mode of Arrival: EMS Source of Information: Patient and EMS Description of Symptoms (Recalled from ER Triage Doc. by RN): pt has multiple complaints. states she is having r flank pain,chest pain,lyme disease,anxiety for the last few years. she has been having multiple episodes daily ans was seen recently in the ER. History of Present Illness HPI narrative: This is a 55-year-old female patient, with past medical history of chronic tobacco abuse as well as chronic Lyme disease, who is presenting to the emergency department today for evaluation of abdominal pain. Patient states his pain is in her right upper quadrant as well as her chest and radiates into the back. The patient has been seen here twice earlier this month and on both occasions has had CT scans of her chest as well as the bedside ultrasounds of her right upper quadrant which have demonstrated gallstones with no complication of cholecystitis. There is been suspicions of potential biliary colic and she has been instructed to follow-up with general surgery but has not done so. 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 She tells me that she is having difficulty with eating secondary to this pain in her abdomen. She is not experiencing any nausea or vomiting. No diarrhea. No blood in her stools. Related Data Home Medications ?Medication ?Instructions ?Recorded ?Confirmed thyroid (pork) 30 mg tablet (ATHLETIC TEAM PHYSICIAN 30 mg PO DAILY 04/01/25 04/01/25 Thyroid) Allergies Allergy/AdvReac Type Severity Reaction Status Date / Time prednisone Allergy Hives Verified 03/15/25 04:44 [facility] Disclaimer: The information contained in this section may have been updated after the patient was seen, as this information can be updated by other users. Social History (Updated 03/15/25 @ 07:12 by Román Leung MD) Smoking Status: Current every day smoker alcohol intake: never current occupational status: other Travel in the last 8 weeks?: None Have you lived/traveled outside [place] in past 30 days?: No Contact w/someone who lives/traveled outside [place] past 30 days?: No Exposure to someone with infectious disease in past 14 days?: No Do you have a fever (greater than 100.4 F or 38 C)?: No Have you tested positive for COVID-19?: No Exposed to someone with COVID-19 in past 14 days?: No Do you have a sore throat?: No Do you have a cough?: No Do you have any weakness?: No Do you have any diarrhea?: No Are you experiencing any unusual bleeding?: No Do you have any muscle aches/pain?: No Do you have any abdominal pain?: No Are you experiencing loss of taste or smell?: No ROS Obtained: Yes Systems reviewed as appropriate & no additional complaints except as documented Physical Exam General General appearance: other (See MDM) Respiratory Respiratory exam: Present other (See MDM) Cardiovascular Cardiovascular exam: Present other (See MDM) Neurological Exam Neurological exam: Present other (See MDM) Medical Decision Making Medical Records Medical records reviewed: Yes I reviewed the patient's medical records. Screening: Per USPSTF and CDC recommendations, given the prevalence of disease in our region, it is our hospital?s policy to screen for HIV and viral Hepatitis for all patients aged 18 and over and those with ongoing risk factors. Nilo Inquiry Pt receiving controlled substance: No Nilo was queried for this patient: No Vital Signs: 04/01/25 09:00 04/01/25 09:01 04/01/25 09:18 Temperature 97.9 F Temperature Source Oral Pulse Rate 69 62 Pulse Rate [Right] 67 Respiratory Rate 20 Blood Pressure 139/64 145/62 H Blood Pressure [Right Arm] 139/64 Blood Pressure Mean Blood Pressure Mean [Right Arm] 89 02 Sat by Pulse Oximetry 100 99 99 Oxygen Delivery Method Room Air 04/01/25 09:31 04/01/25 10:16 04/01/25 10:30 Temperature Temperature Source Pulse Rate 60 62 Pulse Rate [Right] Respiratory Rate Blood Pressure 124/57 L 103/53 L 114/71 Blood Pressure [Right Arm] Blood Pressure Mean Blood Pressure Mean [Right Arm] 02 Sat by Pulse Oximetry 99 98 90 L Oxygen Delivery Method 04/01/25 10:45 04/01/25 11:00 04/01/25 11:15 Temperature Temperature Source Pulse Rate 63 56 L 57 L Pulse Rate [Right] Respiratory Rate Blood Pressure 107/59 L 114/62 109/60 L Blood Pressure [Right Arm] Blood Pressure Mean Blood Pressure Mean [Right Arm] 02 Sat by Pulse Oximetry 92 L 95 94 L Oxygen Delivery Method 04/01/25 11:30 04/01/25 11:45 04/01/25 12:01 Temperature Temperature Source Pulse Rate 56 L 55 L 57 L Pulse Rate [Right] Respiratory Rate Blood Pressure 112/64 113/71 125/59 L Blood Pressure [Right Arm] Blood Pressure Mean Blood Pressure Mean [Right Arm] 02 Sat by Pulse Oximetry 96 100 100 Oxygen Delivery Method 04/01/25 12:15 04/01/25 12:31 04/01/25 13:31 Temperature 0 F L Temperature Source Pulse Rate 58 L 79 0 L Pulse Rate [Right] Respiratory Rate 0 L Blood Pressure 136/65 109/87 L 0/0 L Blood Pressure [Right Arm] Blood Pressure Mean 76 Blood Pressure Mean [Right Arm] 02 Sat by Pulse Oximetry 100 Oxygen Delivery Method Lab Data Lab Results 04/01/25 08:59: WBC 7.5, RBC 4.49, Hgb 13.4, Hct 38.5, MCV 85.7, MCH 29.8, MCHC 34.8, RDW 12.1, Plt Count 229, MPV 11.5 H, Neut % (Auto) 58.8, Lymph % (Auto) 31.6, [place] % (Auto) 6.6, Eos % (Auto) 2.0, Baso % (Auto) 0.7, Neut # (Auto) 4.4, Lymph # (Auto) 2.4, [place] # (Auto) 0.5, Eos # (Auto) 0.2, Baso # (Auto) 0.1, Sodium 138, Potassium 4.4, Chloride 111 H, Carbon Dioxide 13 L, Anion Gap 18.4 H, BUN 19 H, Creatinine 1.10 H, Estimated Creat Clear 58, Estimated GFR 52 L, Est GFR ( Amer) 62, Glucose 101 H, Lactate 2.1, Calcium 9.5, Total Bilirubin 0.7, AST 28, ALT 22, Alkaline Phosphatase 66, Troponin I < 0.01, Total Protein 7.1, Albumin 4.3, Globulin 2.8, Albumin/Globulin Ratio 1.5, Lipase 182 04/01/25 10:30: Urine Color Yellow, Urine Appearance Clear, Urine pH 6.0, Ur Specific [place] 1.015, Urine Protein Negative, Urine Glucose (UA) Negative, Urine Ketones Negative, Urine Blood Negative, Urine Nitrate Negative, Urine Bilirubin Negative, Urine Urobilinogen 0.2, Ur Leukocyte Esterase Negative, Urine RBC None, Urine WBC Occasional, Ur Squamous Epith Cells Occasional, Urine Bacteria Trace 04/01/25 11:44: Troponin I < 0.01 04/01/25 08:59 04/01/25 08:59 Orders (Tests/Meds): ED MEDICATIONS Discontinued Medications Generic Name Dose Route Start Last Admin Trade Name Freq PRN Reason Stop Dose Admin Diazepam 5 mg 04/01/25 12:23 Diazepam 10mg/2ml Syringe IV 04/01/25 12:24 ONCE ONE Hydromorphone HCl 1 mg 04/01/25 12:42 Hydromorphone 2mg/Ml Syringe IV 04/01/25 12:43 ONCE ONE Lactated Ringer's 1,000 mls @ 999 mls/hr 04/01/25 09:29 04/01/25 10:54 Lactated Ringer's 1000 Ml Bag IV 04/01/25 10:29 Infused .Q1H1M ONE Infusion Iopamidol 75 ml 04/01/25 09:43 04/01/25 09:52 Iopamidol-370 (76%);100ml Bottle IV 04/01/25 09:44 75 ml ONCE ONE Administration Morphine Sulfate 4 mg 04/01/25 09:28 04/01/25 09:56 Morphine 4mg/Ml Syringe IV 04/01/25 09:29 Not Given ONCE ONE Ondansetron HCl 4 mg 04/01/25 09:28 04/01/25 09:54 Ondansetron 4mg/2ml Vial IV 04/01/25 09:29 4 mg ONCE ONE Administration Sodium Chloride 10 ml 04/01/25 09:43 04/01/25 09:52 Sodium Chloride 0.9% 10ml Syr (Rad Only) IV 05/01/25 09:42 10 ml NEEDED PRN Administration Maintain IV Site ORDERS Category Date Time Status CT abdomen pelvis w con Stat Cat Scan 04/01/25 09:27 Completed POCUS Point of Care (ER Only) Stat Exams 04/01/25 12:23 Completed Complete Blood Count Auto Diff Stat Lab 04/01/25 08:59 Completed Comprehensive Metabolic Panel Stat Lab 04/01/25 08:59 Completed Lactic Acid Stat Lab 04/01/25 08:59 Completed Lipase Stat Lab 04/01/25 08:59 Completed Trop I [Troponin I] Stat Lab 04/01/25 08:59 Completed Troponin I Q3H Lab 04/01/25 11:44 Completed UA [Urinalysis and Microscopic] Stat Lab 04/01/25 10:30 Completed ECG Data Tracing #1: I reviewed this ECG and interpreted as documented below: EKG personally interpreted by me demonstrates sinus bradycardia with a rate of 59 bpm, normal axis, no RI prolongation, narrow QRS, no QTc prolongation. No ST elevation or depression. No overt signs of ischemia or arrhythmia Medical Decision Narrative: In summary, this is a 55-year-old female patient who is presenting to the emergency department today for evaluation of right upper quadrant Franco pain radiating into her chest as well as into her back. The patient is been seen here multiple times this month and has been diagnosed with gallstones via bedside ultrasound. She has had CTAs of her chest which have been negative. She has been instructed to follow-up with general surgery for her gallstones but has failed to do so. Her comorbidities include a history of chronic tobacco abuse as well as chronic Lyme disease. On initial evaluation of the patient she appears to be extraordinarily anxious and in lots of pain. She was given 100 mcg of fentanyl by EMS prior to arrival and states that she does not like the way this medication made her feel and she is requesting an medication other than fentanyl. Additionally she is hemodynamically stable, nontachycardic, and saturating well on room air. History is quite difficult to obtain from the patient secondary to how anxious she is. However, on physical examination of the patient heart and lungs are clear to auscultation bilaterally. She does have marked tenderness in the right upper quadrant as well as the epigastric region without any rebound present. She has no lower extremity erythema or edema. Differential diagnosis included pancreatitis, cholecystitis, choledocholithiasis, intra-abdominal abscess, small bowel obstruction, ACS/MA, electrolyte derangement, acute kidney injury, among others. Workup was initiated with hematologic labs as well as a CT scan of the abdomen and pelvis. We have treated the patient's pain with 4 mg of morphine and 4 mg of Zofran. I have also administered 1 L of lactated Ringer's. EKG was obtained and official interpretation is listed above. There is no ischemic changes present on this examination. It is largely unchanged from prior. Labs were personally turbid by me and demonstrate no evidence of leukocytosis. She has no significant electrolyte derangements or evidence of acute kidney injury. Lactate is reassuring at 2.1. Troponin and delta troponin are both less than 0.01. My highest suspicion was for biliary pathology, and her biliary labs are largely unremarkable. She has no evidence of transaminitis, no elevation of alkaline phosphatase, and her bilirubin is 0.7 which is normal. Lipase is also normal at 182. this does suggest against any kind of biliary obstruction. CT scan of the abdomen pelvis was obtained. CT scan was personally turbid by me and demonstrates no evidence of pneumoperitoneum. Official radiology read is in agreement and states there is no acute other malady. They state that the gallbladder appears unremarkable with no evidence of stones or pericholecystic fluid. In light of these findings on CT scan, I did update the patient and offered a bedside ultrasound to assess her gallbladder further. The patient was very unhappy with the fact that we cannot see her gallstones on CT scan. I did try to explain to her at length that CT scan is not the most sensitive or specific study to detect gallstones and that by performing a bedside ultrasound I could get a better look at the gallbladder to identify any pathology that is there, if present. This conversation was very difficult and the patient was very unhappy with everything that I was saying at this time. In spite of this, she did allow me to perform a bedside ultrasound and I found that there was thickening of the gallbladder wall at 0.44 cm as well as a common bile duct that is very mildly dilated at 0.6 cm. Within the gallbladder wall there appears to be some fluid that is very trace and in the setting of this gallbladder wall thickening it does raise concern for acute cholecystitis. Given these findings I had an interactive discussion with Dr. Davis of general surgery. He instructed us to start Zosyn and admit the patient for further pain control given that she was experiencing intractable pain. He stated that he would see the patient in the morning and make a definitive decision on whether she needed urgent surgery this weekend. I returned to the room to inform the patient of this plan, and she was very displeased with this plan moving forward. She was repeatedly questioning why the surgeon could not see her today to perform a cholecystectomy. She was recurrently making blatant statements such as is he too busy golfing or jacking off? , and accusing staff of not taking her condition seriously enough. I did try to calmly redirect the conversation on multiple occasions to inform the patient that this is how the system works and based off her laboratory assessment and vitals that there was nothing to suggest that she needed emergent surgery today, and that I felt it to be reasonable to continue to observe her overnight on antibiotics. At almost every attempt to redirect the conversation, the patient would interrupt and interject to inform me that our plan was unsatisfactory and that she needed more emergent care. The patient ultimately decided that she did not want to receive care any longer at our hospital and requested AGAINST MEDICAL ADVICE papers to sign out of the hospital and pursue care elsewhere. I did discuss risk and benefits with the patient and tried to reassure her that we would treat her pain, her anxiety, and any potential underlying infection of the gallbladder overnight here in the hospital until surgery can formally evaluate her in the morning and make a decision on timing of cholecystectomy. Despite these attempts the patient still insisted on leaving the hospital AGAINST MEDICAL ADVICE. She acknowledged understanding of risks and benefits. Patient ultimately left the hospital AGAINST MEDICAL ADVICE in stable condition Procedures Miscellaneous Procedure Procedure Performed: Limited right upper quadrant ultrasound Indication: Abdominal pain Identified structures: Gallbladder, gallbladder wall, bile duct Findings: Sonographic Watkins sign: Present Gallstones: Present Sludge: Absent Pericholecystic fluid: Trace, present Maximal gallbladder wall thickness (mm): 0.44 cm abnormal Gallbladder length: 10.8 cm Common bile duct with (mm): 0.6 cm borderline abnormal Impression: Innumerable gallstones within the gallbladder with mild thickening of the gallbladder wall and trace pericholecystic fluid compatible with cholecystitis Images were saved to permanent archive This study was technically adequate CPT: 13672-14 This study was performed by me and I personally interpreted all images/videos. Based on my clinical judgment these images were adequate and did not necessitate further imaging. Critical Care Critical Care Time Critical Care Time: No
[2025-04-01 13:08] LABS: Reflex Lactic Add Lactic Reflex
== END 2025-04-01 13:07 | disposition left against medical advice (07) ==
PROVIDERS: Emergency Provider Student in an Organized Health Care Education/Training Program
DX: K81.0 Acute cholecystitis (principal); Z53.29 Procedure and treatment not carried out because of patient's decision for other reasons
CPT/HCPCS: 74177; 80053; 81001; 83605; 83690; 84484; 85025; 93005; 96361; 96374; 96375; 99284; 99285; J2405; J7120; Q9967